=== PATIENT | female | born 1945 | race Asian ===

== ENCOUNTER 2021-01-29 20:59 | Inpatient (IN) | payer OTHER ==
[~2021-01-29] VITALS: Ht 152.4 cm; Wt 63.3 kg
[2021-01-29] MEDS ORDERED: ACETAMINOPHEN 500 MG TAB PO ONE (22:30)
[2021-01-29 22:31] LABS: Basophils # (auto) 0 10 ^3/uL (0-0.2); Basophils % (auto) 0.2 % (0.0-2.0); Eosinophils # (auto) 0 10 ^3/uL (0-0.8); Hematocrit 37.2 % (36.0-46.0); Hemoglobin 12.4 g/dL (12.2-16.2); Lymphocytes # (auto) 1.1 10 ^3/uL (0.4-5.4); Mean Corpuscular Hemoglobin 29.8 pg (28.0-32.0); Mean Corpuscular Hgb Conc. 33.3 g/dL (32.0-36.0); Mean Corpuscular Volume 89.4 fL (80.0-100.0); Monocytes % (auto) 11.8 % (0.0-12.0); Neutrophils # (auto) 6.4 10 ^3/uL (1.6-8.6); Nucleated Red Blood Cells % 0.1 %; Red Blood Cells 4.16 10^6/uL (4.0-5.20); Red Cell Distribution Width 13.4 % (11.8-14.3); White Blood Cell 8.6 10^3/uL (4.4-10.8)
[2021-01-29 22:49] LABS: Alanine Aminotransferase 39 U/L (13-56); Anion Gap 12 (5-15); Blood Urea Nitrogen 23 mg/dL (7-18); Calcium 9.5 mg/dL (8.5-10.1); Carbon Dioxide 20 mmol/L (21-32); Chloride 105 mmol/L (98-107); Glucose 161 mg/dL (74-106); Lipase 288 U/L (73-393); Magnesium 2.6 mg/dL (1.6-2.6); Potassium 3.9 mmol/L (3.5-5.1); Sodium 137 mmol/L (136-145)
[2021-01-29 22:54] LABS: Alkaline Phosphatase 46 U/L (45-117); Aspartate Aminotransferase 68 U/L (15-37); BUN/Creatinine Ratio 28.8; Bilirubin, Total 0.6 mg/dL (0.2-1.0); GFR African American 90 mL/min; GFR Non-African American 74 mL/min; Total Protein 9.2 g/dL (6.4-8.2)
[2021-01-29] MEDS ORDERED: PIPERACILLIN-TAZOB 3.375GM 100 ML IV ONE (23:15)
[2021-01-29] MEDS ORDERED: DexAMETHasone SOD PHOS 10MG/1ML VIAL INJ IV ONE (23:15)
[2021-01-30 06:54] LABS: Urine Bacteria FEW /hpf (None Seen); Urine Blood Negative /uL (Negative); Urine Hyaline Cast FEW /lpf (0 - 2); Urine Specific Gravity 1.025 (1.001-1.035); Urine WBC 24 /hpf (0 - 5)
[2021-01-30] MEDS ORDERED: ONDANSETRON HCL 4 MG/2 ML VIAL IV PRN (07:15)
[2021-01-30] MEDS ORDERED: HYDROcodone-ACET 5/325MG TAB PO PRN (07:15)
[2021-01-30] MEDS ORDERED: NITROGLYCERIN 0.4 MG SL TAB SL PRN (07:15)
[2021-01-30] MEDS ORDERED: MORPHINE SULFATE INJECTION 2 MG/ML SYRG IV PRN (07:15)
[2021-01-30] MEDS ORDERED: SODIUM CHLORIDE 0.9% 1,000 ML IV SCH (07:15)
[2021-01-30] MEDS: cefTRIAXone 1GM/50ML D5W 50 ML IV SCH (10:52)
[2021-01-30] MEDS: CHOLECALCIFEROL (VITD3) 2,000 UNIT CAP/TAB PO SCH (10:52)
[2021-01-30] MEDS: AZITHROMYCIN 500MG/ 250ML 250 ML IV SCH (10:52)
[2021-01-30] MEDS: ENOXAPARIN SOD 40 MG/0.4 ML SYRINGE SC SCH (10:53)
[2021-01-30] MEDS: MULTIPLE VITAMIN TAB PO SCH (10:53)
[2021-01-30] MEDS: ASCORBIC ACID 1,000 MG TAB PO SCH (10:53)
[2021-01-30] MEDS: ZINC SULFATE 220mg CAP or TAB PO SCH (10:53)
[2021-01-30] MEDS: FAMOTIDINE (10MG/ML) 2ML VL IV SCH (10:54)
[2021-01-30] MEDS: DexAMETHasone SOD PHOS 10MG/1ML VIAL INJ IV SCH (10:54)
[2021-01-30] MEDS ORDERED: REMDESIVIR PER PHARMACY 0 ML IV SCH (12:15)
[2021-01-30] MEDS ORDERED: DEXTROSE (50%) 50ML SYRG IV PRN (13:00)
[2021-01-30] MEDS ORDERED: IOHEXOL 350 MG/ML 100ML IJ ONE (13:21)
[2021-01-30] MEDS ORDERED: REMDESIVIR 200 MG in NS 210ml LOADING DOSE ADULT IV ONE (15:00)
[2021-01-30] MEDS: BUDESONIDE (INHALATION) 180 MCG IH IN SCH ×2 (15:27→21:59)
[2021-01-30] MEDS: ACCU-CHEK COMFORT CURVE STRIP VI SCH ×2 (16:41→21:21)
[2021-01-30] MEDS: InsuLIN REG 1unit/0.01ml Soln (100units/ml) SC SCH ×2 (17:23→21:21)
[2021-01-30] MEDS: Ensure HIGH Protein Chocolate 8oz Bottle PO SCH (18:15)
[2021-01-30 20:01] VITALS: BP 144/76
[2021-01-30] MEDS: ACETAMINOPHEN 500 MG TAB PO PRN (21:38)
[2021-01-30] MEDS: ALBUTEROL SULF HFA 90MCG INH 200DOSE IN PRN (21:59)
[2021-01-31] MEDS: ACETAMINOPHEN 500 MG TAB PO PRN (04:47)
[2021-01-31] MEDS: InsuLIN REG 1unit/0.01ml Soln (100units/ml) SC SCH ×4 (06:40→22:20)
[2021-01-31] MEDS: ACCU-CHEK COMFORT CURVE STRIP VI SCH ×4 (06:41→22:18)
[2021-01-31 06:58] LABS: Basophils # (auto) 0 10 ^3/uL (0-0.2); Basophils % (auto) 0.1 % (0.0-2.0); Eosinophils # (auto) 0 10 ^3/uL (0-0.8); Hematocrit 35.1 % (36.0-46.0); Hemoglobin 11.7 g/dL (12.2-16.2); Lymphocytes # (auto) 1.5 10 ^3/uL (0.4-5.4); Lymphocytes % (auto) 13.1 % (10.0-50.0); Mean Corpuscular Hemoglobin 30.3 pg (28.0-32.0); Mean Corpuscular Hgb Conc. 33.3 g/dL (32.0-36.0); Monocytes # (auto) 1.4 10 ^3/uL (0-1.3); Monocytes % (auto) 12.8 % (0.0-12.0); Neutrophils # (auto) 8.3 10 ^3/uL (1.6-8.6); Red Blood Cells 3.85 10^6/uL (4.0-5.20); Red Cell Distribution Width 13.3 % (11.8-14.3); White Blood Cell 11.2 10^3/uL (4.4-10.8)
[2021-01-31 07:13] LABS: Albumin 2.1 g/dL (3.4-5.0); BUN/Creatinine Ratio 33.8; Calcium 8.4 mg/dL (8.5-10.1); Potassium 3.6 mmol/L (3.5-5.1)
[2021-01-31 07:28] LABS: Bilirubin, Total 0.3 mg/dL (0.2-1.0); Total Protein 7.8 g/dL (6.4-8.2)
[2021-01-31] MEDS: Ensure HIGH Protein Chocolate 8oz Bottle PO SCH ×3 (08:00→18:55)
[2021-01-31] MEDS: cefTRIAXone 1GM/50ML D5W 50 ML IV SCH (09:30)
[2021-01-31] MEDS: BUDESONIDE (INHALATION) 180 MCG IH IN SCH ×2 (09:48→18:58)
[2021-01-31] MEDS: ALBUTEROL SULF HFA 90MCG INH 200DOSE IN PRN ×2 (09:48→20:13)
[2021-01-31] MEDS: ASCORBIC ACID 1,000 MG TAB PO SCH (10:00)
[2021-01-31] MEDS: AZITHROMYCIN 500MG/ 250ML 250 ML IV SCH ×2 (10:00→13:45)
[2021-01-31] MEDS: ZINC SULFATE 220mg CAP or TAB PO SCH (10:00)
[2021-01-31] MEDS: DexAMETHasone SOD PHOS 10MG/1ML VIAL INJ IV SCH (12:20)
[2021-01-31] MEDS: MULTIPLE VITAMIN TAB PO SCH (12:21)
[2021-01-31] MEDS: FAMOTIDINE (10MG/ML) 2ML VL IV SCH (12:21)
[2021-01-31] MEDS: ENOXAPARIN SOD 40 MG/0.4 ML SYRINGE SC SCH (12:22)
[2021-01-31] MEDS: CHOLECALCIFEROL (VITD3) 2,000 UNIT CAP/TAB PO SCH (12:22)
[2021-01-31] MEDS: REMDESIVIR 100mg 100 MG in SODIUM CHL 0.9% 230 ML IV SCH (15:45)
[2021-01-31] MEDS ORDERED: TOCILIZUMAB 400 MG in SODIUM CHL 0.9% 80 ML IV ONE (17:00)
[2021-02-01 02:18] VITALS: BP 148/82
[2021-02-01 05:00] VITALS: BP 154/85
[2021-02-01] MEDS: ACCU-CHEK COMFORT CURVE STRIP VI SCH ×4 (05:09→21:40)
[2021-02-01] MEDS: InsuLIN REG 1unit/0.01ml Soln (100units/ml) SC SCH ×4 (05:12→21:39)
[2021-02-01 06:13] LABS: Basophils # (auto) 0 10 ^3/uL (0-0.2); Basophils % (auto) 0.2 % (0.0-2.0); Eosinophils # (auto) 0 10 ^3/uL (0-0.8); Hematocrit 37.3 % (36.0-46.0); Hemoglobin 12.8 g/dL (12.2-16.2); Lymphocytes # (auto) 1.2 10 ^3/uL (0.4-5.4); Lymphocytes % (auto) 10.8 % (10.0-50.0); Mean Corpuscular Hemoglobin 30.7 pg (28.0-32.0); Mean Corpuscular Hgb Conc. 34.3 g/dL (32.0-36.0); Mean Corpuscular Volume 89.5 fL (80.0-100.0); Monocytes # (auto) 1.4 10 ^3/uL (0-1.3); Monocytes % (auto) 12.3 % (0.0-12.0); Neutrophils # (auto) 8.5 10 ^3/uL (1.6-8.6); Neutrophils % (auto) 76.7 % (37.0-80.0); Nucleated Red Blood Cells % 0.1 %; Red Blood Cells 4.16 10^6/uL (4.0-5.20); Red Cell Distribution Width 13.4 % (11.8-14.3); White Blood Cell 11.1 10^3/uL (4.4-10.8)
[2021-02-01 06:47] LABS: Potassium 3.2 mmol/L (3.5-5.1)
[2021-02-01 06:52] LABS: Albumin 2.4 g/dL (3.4-5.0); Calcium 8.3 mg/dL (8.5-10.1)
[2021-02-01 06:54] LABS: Bilirubin, Total 0.4 mg/dL (0.2-1.0); Total Protein 8.1 g/dL (6.4-8.2)
[2021-02-01] MEDS: BUDESONIDE (INHALATION) 180 MCG IH IN SCH ×2 (07:29→19:12)
[2021-02-01] MEDS: ALBUTEROL SULF HFA 90MCG INH 200DOSE IN PRN ×2 (07:29→19:11)
[2021-02-01] MEDS: Ensure HIGH Protein Chocolate 8oz Bottle PO SCH ×3 (08:00→17:54)
[2021-02-01 09:00] VITALS: BP 156/85
[2021-02-01] MEDS: DexAMETHasone SOD PHOS 10MG/1ML VIAL INJ IV SCH (09:03)
[2021-02-01] MEDS: FAMOTIDINE (10MG/ML) 2ML VL IV SCH (09:03)
[2021-02-01] MEDS: cefTRIAXone 1GM/50ML D5W 50 ML IV SCH (09:03)
[2021-02-01] MEDS: MULTIPLE VITAMIN TAB PO SCH (09:04)
[2021-02-01] MEDS: ZINC SULFATE 220mg CAP or TAB PO SCH (09:04)
[2021-02-01] MEDS: ASCORBIC ACID 1,000 MG TAB PO SCH (09:04)
[2021-02-01] MEDS: CHOLECALCIFEROL (VITD3) 2,000 UNIT CAP/TAB PO SCH (09:04)
[2021-02-01] MEDS: ENOXAPARIN SOD 40 MG/0.4 ML SYRINGE SC SCH ×2 (09:05→21:40)
[2021-02-01] MEDS ORDERED: TOCILIZUMAB 400 MG in SODIUM CHL 0.9% 80 ML IV ONE (10:00)
[2021-02-01] MEDS ORDERED: FAMO20TA10 PO (12:39)
[2021-02-01] MEDS ORDERED: PANT40TA2 PO (12:39)
[2021-02-01] MEDS ORDERED: OXY5T PO (12:39)
[2021-02-01] MEDS ORDERED: PRE5T PO (12:39)
[2021-02-01] MEDS ORDERED: ACET-1304 PO (12:39)
[2021-02-01] MEDS ORDERED: PIO30T PO (12:39)
[2021-02-01] MEDS ORDERED: METH2.5T PO ×2 (12:39→13:04)
[2021-02-01] MEDS ORDERED: LOSA100T22 PO (12:39)
[2021-02-01] MEDS ORDERED: ACETAMINOPHEN 500 MG TAB PO PRN (12:45)
[2021-02-01] MEDS ORDERED: oxyCODONE HCL 5MG TAB PO PRN (12:45)
[2021-02-01 13:00] VITALS: BP 155/88
[2021-02-01] MEDS: REMDESIVIR 100mg 100 MG in SODIUM CHL 0.9% 230 ML IV SCH (14:35)
[2021-02-01] MEDS ORDERED: VALS40TA2 PO (15:36)
[2021-02-01] MEDS ORDERED: METHOTREXATE 2.5 MG TAB PO SCH ×2 (15:45→18:00)
[2021-02-01 17:00] VITALS: BP 172/94
[2021-02-01] MEDS ORDERED: VALSARTAN 80 MG TAB PO ONE (17:00)
[2021-02-01] MEDS: METHOTREXATE 2.5 MG TAB PO SCH (17:12)
[2021-02-01 22:00] VITALS: BP 160/93
[2021-02-01] MEDS ORDERED: FAMOTIDINE 20 MG TAB PO SCH (22:00)
[2021-02-02 05:00] VITALS: BP 155/85
[2021-02-02 05:17] LABS: Basophils # (auto) 0.1 10 ^3/uL (0-0.2); Basophils % (auto) 0.8 % (0.0-2.0); Eosinophils # (auto) 0 10 ^3/uL (0-0.8); Eosinophils % (auto) 0.1 % (0.0-7.0); Hematocrit 36.3 % (36.0-46.0); Hemoglobin 12.5 g/dL (12.2-16.2); Lymphocytes # (auto) 1.4 10 ^3/uL (0.4-5.4); Lymphocytes % (auto) 13.4 % (10.0-50.0); Mean Corpuscular Hemoglobin 30.7 pg (28.0-32.0); Mean Corpuscular Hgb Conc. 34.3 g/dL (32.0-36.0); Mean Corpuscular Volume 89.4 fL (80.0-100.0); Monocytes # (auto) 0.9 10 ^3/uL (0-1.3); Monocytes % (auto) 8.8 % (0.0-12.0); Neutrophils # (auto) 7.9 10 ^3/uL (1.6-8.6); Neutrophils % (auto) 76.9 % (37.0-80.0); Red Blood Cells 4.06 10^6/uL (4.0-5.20); Red Cell Distribution Width 13.5 % (11.8-14.3); White Blood Cell 10.2 10^3/uL (4.4-10.8)
[2021-02-02 05:19] LABS: Calcium 8.3 mg/dL (8.5-10.1); Potassium 3.4 mmol/L (3.5-5.1)
[2021-02-02] MEDS: ACCU-CHEK COMFORT CURVE STRIP VI SCH ×4 (05:39→21:29)
[2021-02-02] MEDS: InsuLIN REG 1unit/0.01ml Soln (100units/ml) SC SCH ×4 (05:41→21:29)
[2021-02-02 09:19] VITALS: BP 153/79
[2021-02-02] MEDS ORDERED: LOSARTAN POTASSIUM 50 MG TAB PO SCH (10:00)
[2021-02-02] MEDS: Ensure HIGH Protein Chocolate 8oz Bottle PO SCH ×3 (11:16→18:00)
[2021-02-02] MEDS: MULTIPLE VITAMIN TAB PO SCH (11:17)
[2021-02-02] MEDS: DexAMETHasone SOD PHOS 10MG/1ML VIAL INJ IV SCH (11:17)
[2021-02-02] MEDS: BUDESONIDE (INHALATION) 180 MCG IH IN SCH ×2 (11:17→19:08)
[2021-02-02] MEDS: ALBUTEROL SULF HFA 90MCG INH 200DOSE IN PRN ×2 (11:17→19:08)
[2021-02-02] MEDS: VALSARTAN 80 MG TAB PO SCH (11:17)
[2021-02-02] MEDS: ZINC SULFATE 220mg CAP or TAB PO SCH (11:17)
[2021-02-02] MEDS: cefTRIAXone 1GM/50ML D5W 50 ML IV SCH (11:17)
[2021-02-02] MEDS: ENOXAPARIN SOD 40 MG/0.4 ML SYRINGE SC SCH ×2 (11:18→21:29)
[2021-02-02] MEDS: PANTOPRAZOLE 40 MG TAB PO SCH (11:18)
[2021-02-02] MEDS: ASCORBIC ACID 1,000 MG TAB PO SCH (11:18)
[2021-02-02] MEDS: CHOLECALCIFEROL (VITD3) 2,000 UNIT CAP/TAB PO SCH (11:18)
[2021-02-02] MEDS: AZITHROMYCIN 500MG/ 250ML 250 ML IV SCH (11:59)
[2021-02-02 12:44] VITALS: BP 139/89
[2021-02-02] MEDS: REMDESIVIR 100mg 100 MG in SODIUM CHL 0.9% 230 ML IV SCH (16:31)
[2021-02-02 17:18] VITALS: BP 142/82
[2021-02-02 22:00] VITALS: BP 163/97
[2021-02-02 23:39] VITALS: BP 138/99
[2021-02-03 05:00] VITALS: BP 156/76
[2021-02-03 05:48] LABS: Albumin 2.5 g/dL (3.4-5.0); Calcium 8.4 mg/dL (8.5-10.1); Potassium 3.3 mmol/L (3.5-5.1)
[2021-02-03 05:55] LABS: Basophils # (auto) 0 10 ^3/uL (0-0.2); Basophils % (auto) 0.5 % (0.0-2.0); Eosinophils # (auto) 0 10 ^3/uL (0-0.8); Eosinophils % (auto) 0.1 % (0.0-7.0); Hematocrit 38.3 % (36.0-46.0); Hemoglobin 13.3 g/dL (12.2-16.2); Lymphocytes # (auto) 1.4 10 ^3/uL (0.4-5.4); Lymphocytes % (auto) 13.4 % (10.0-50.0); Mean Corpuscular Hgb Conc. 34.7 g/dL (32.0-36.0); Mean Corpuscular Volume 89.5 fL (80.0-100.0); Monocytes # (auto) 0.6 10 ^3/uL (0-1.3); Monocytes % (auto) 5.5 % (0.0-12.0); Neutrophils # (auto) 8.2 10 ^3/uL (1.6-8.6); Neutrophils % (auto) 80.5 % (37.0-80.0); Nucleated Red Blood Cells % 0.1 %; Red Blood Cells 4.28 10^6/uL (4.0-5.20); Red Cell Distribution Width 13.5 % (11.8-14.3); White Blood Cell 10.1 10^3/uL (4.4-10.8)
[2021-02-03 05:57] LABS: BUN/Creatinine Ratio 35.9; Bilirubin, Total 0.5 mg/dL (0.2-1.0); CRP High Sensitivity 1.98 mg/dL (< 0.3); Total Protein 7.8 g/dL (6.4-8.2)
[2021-02-03] MEDS: ACCU-CHEK COMFORT CURVE STRIP VI SCH ×4 (06:56→22:01)
[2021-02-03] MEDS: ALBUTEROL SULF HFA 90MCG INH 200DOSE IN PRN ×2 (07:01→21:19)
[2021-02-03] MEDS: BUDESONIDE (INHALATION) 180 MCG IH IN SCH ×2 (07:01→21:19)
[2021-02-03] MEDS: InsuLIN REG 1unit/0.01ml Soln (100units/ml) SC SCH ×4 (07:04→22:02)
[2021-02-03 08:30] VITALS: BP 180/92
[2021-02-03] MEDS: ZINC SULFATE 220mg CAP or TAB PO SCH (09:17)
[2021-02-03] MEDS: DexAMETHasone SOD PHOS 10MG/1ML VIAL INJ IV SCH (09:17)
[2021-02-03] MEDS: cefTRIAXone 1GM/50ML D5W 50 ML IV SCH (09:17)
[2021-02-03] MEDS: Ensure HIGH Protein Chocolate 8oz Bottle PO SCH ×3 (09:17→17:54)
[2021-02-03] MEDS: CHOLECALCIFEROL (VITD3) 2,000 UNIT CAP/TAB PO SCH (09:18)
[2021-02-03] MEDS: MULTIPLE VITAMIN TAB PO SCH (09:18)
[2021-02-03] MEDS: ASCORBIC ACID 1,000 MG TAB PO SCH (09:18)
[2021-02-03] MEDS: VALSARTAN 80 MG TAB PO SCH (09:18)
[2021-02-03] MEDS: PANTOPRAZOLE 40 MG TAB PO SCH (09:18)
[2021-02-03] MEDS: hydrALAZINE HCL 20 MG/ML VL IV PRN (09:19)
[2021-02-03] MEDS: ENOXAPARIN SOD 40 MG/0.4 ML SYRINGE SC SCH ×2 (09:19→22:01)
[2021-02-03] MEDS: AZITHROMYCIN 500MG/ 250ML 250 ML IV SCH (09:52)
[2021-02-03 12:28] VITALS: BP 155/94
[2021-02-03] MEDS ORDERED: POTASSIUM CHL 20 Meq TABLET PO ONE (12:45)
[2021-02-03] MEDS: REMDESIVIR 100mg 100 MG in SODIUM CHL 0.9% 230 ML IV SCH (15:42)
[2021-02-03 17:16] VITALS: BP 135/68
[2021-02-03 22:00] VITALS: BP 150/94
[2021-02-04 05:00] VITALS: BP 170/87
[2021-02-04] MEDS: ALBUTEROL SULF HFA 90MCG INH 200DOSE IN PRN ×2 (06:04→22:12)
[2021-02-04] MEDS: BUDESONIDE (INHALATION) 180 MCG IH IN SCH ×2 (06:04→22:12)
[2021-02-04] MEDS: ACCU-CHEK COMFORT CURVE STRIP VI SCH ×4 (06:36→23:21)
[2021-02-04] MEDS: InsuLIN REG 1unit/0.01ml Soln (100units/ml) SC SCH ×4 (06:37→23:23)
[2021-02-04 07:24] LABS: Basophils # (auto) 0 10 ^3/uL (0-0.2); Basophils % (auto) 0.3 % (0.0-2.0); Eosinophils # (auto) 0.1 10 ^3/uL (0-0.8); Eosinophils % (auto) 0.5 % (0.0-7.0); Hematocrit 42.3 % (36.0-46.0); Hemoglobin 14.1 g/dL (12.2-16.2); Lymphocytes # (auto) 2.3 10 ^3/uL (0.4-5.4); Lymphocytes % (auto) 18.9 % (10.0-50.0); Mean Corpuscular Hemoglobin 30.3 pg (28.0-32.0); Mean Corpuscular Hgb Conc. 33.3 g/dL (32.0-36.0); Monocytes # (auto) 0.7 10 ^3/uL (0-1.3); Monocytes % (auto) 5.6 % (0.0-12.0); Neutrophils # (auto) 9.2 10 ^3/uL (1.6-8.6); Neutrophils % (auto) 74.7 % (37.0-80.0); Nucleated Red Blood Cells % 0.1 %; Red Blood Cells 4.65 10^6/uL (4.0-5.20); Red Cell Distribution Width 13.6 % (11.8-14.3); White Blood Cell 12.3 10^3/uL (4.4-10.8)
[2021-02-04 07:37] LABS: BUN/Creatinine Ratio 37.8; Calcium 8.6 mg/dL (8.5-10.1); Potassium 3.6 mmol/L (3.5-5.1)
[2021-02-04] MEDS: cefTRIAXone 1GM/50ML D5W 50 ML IV SCH (09:05)
[2021-02-04] MEDS: Ensure HIGH Protein Chocolate 8oz Bottle PO SCH ×3 (09:05→17:46)
[2021-02-04 09:12] VITALS: BP 161/80
[2021-02-04] MEDS: DexAMETHasone SOD PHOS 10MG/1ML VIAL INJ IV SCH (10:31)
[2021-02-04] MEDS: ZINC SULFATE 220mg CAP or TAB PO SCH (10:31)
[2021-02-04] MEDS: MULTIPLE VITAMIN TAB PO SCH (10:31)
[2021-02-04] MEDS: VALSARTAN 80 MG TAB PO SCH (10:31)
[2021-02-04] MEDS: ENOXAPARIN SOD 40 MG/0.4 ML SYRINGE SC SCH ×2 (10:32→23:21)
[2021-02-04] MEDS: CHOLECALCIFEROL (VITD3) 2,000 UNIT CAP/TAB PO SCH (10:32)
[2021-02-04] MEDS: PANTOPRAZOLE 40 MG TAB PO SCH (10:32)
[2021-02-04] MEDS: ASCORBIC ACID 1,000 MG TAB PO SCH (10:32)
[2021-02-04] MEDS: hydrALAZINE HCL 20 MG/ML VL IV PRN (11:08)
[2021-02-04 13:00] VITALS: BP 130/76
[2021-02-04 17:00] VITALS: BP 130/81
[2021-02-04 22:00] VITALS: BP 121/79
[2021-02-05 05:00] VITALS: BP 142/86
[2021-02-05] MEDS: ALBUTEROL SULF HFA 90MCG INH 200DOSE IN PRN ×2 (06:13→22:05)
[2021-02-05] MEDS: BUDESONIDE (INHALATION) 180 MCG IH IN SCH ×2 (06:14→22:04)
[2021-02-05] MEDS: InsuLIN REG 1unit/0.01ml Soln (100units/ml) SC SCH ×4 (06:42→21:59)
[2021-02-05] MEDS: ACCU-CHEK COMFORT CURVE STRIP VI SCH ×4 (06:42→22:06)
[2021-02-05 08:00] VITALS: BP 140/70
[2021-02-05] MEDS: Ensure HIGH Protein Chocolate 8oz Bottle PO SCH ×3 (08:00→18:00)
[2021-02-05 09:00] VITALS: BP 140/70
[2021-02-05 09:42] LABS: Basophils # (auto) 0.1 10 ^3/uL (0-0.2); Basophils % (auto) 0.5 % (0.0-2.0); Eosinophils # (auto) 0.1 10 ^3/uL (0-0.8); Eosinophils % (auto) 0.6 % (0.0-7.0); Hematocrit 43.4 % (36.0-46.0); Hemoglobin 14.3 g/dL (12.2-16.2); Lymphocytes # (auto) 1.8 10 ^3/uL (0.4-5.4); Lymphocytes % (auto) 13.2 % (10.0-50.0); Mean Corpuscular Hemoglobin 29.7 pg (28.0-32.0); Mean Corpuscular Volume 90.2 fL (80.0-100.0); Monocytes # (auto) 0.8 10 ^3/uL (0-1.3); Monocytes % (auto) 5.4 % (0.0-12.0); Neutrophils # (auto) 11.2 10 ^3/uL (1.6-8.6); Neutrophils % (auto) 80.3 % (37.0-80.0); Nucleated Red Blood Cells % 0.1 %; Red Blood Cells 4.81 10^6/uL (4.0-5.20); Red Cell Distribution Width 13.7 % (11.8-14.3); White Blood Cell 13.9 10^3/uL (4.4-10.8)
[2021-02-05] MEDS: MULTIPLE VITAMIN TAB PO SCH (09:53)
[2021-02-05] MEDS: ENOXAPARIN SOD 40 MG/0.4 ML SYRINGE SC SCH ×2 (09:53→22:05)
[2021-02-05] MEDS: ASCORBIC ACID 1,000 MG TAB PO SCH (09:53)
[2021-02-05] MEDS: ZINC SULFATE 220mg CAP or TAB PO SCH (09:53)
[2021-02-05] MEDS: PANTOPRAZOLE 40 MG TAB PO SCH (09:53)
[2021-02-05] MEDS: cefTRIAXone 1GM/50ML D5W 50 ML IV SCH (09:53)
[2021-02-05] MEDS: DexAMETHasone SOD PHOS 10MG/1ML VIAL INJ IV SCH (09:54)
[2021-02-05] MEDS: VALSARTAN 80 MG TAB PO SCH (09:54)
[2021-02-05 09:58] LABS: BUN/Creatinine Ratio 42.1; Potassium 3.7 mmol/L (3.5-5.1)
[2021-02-05 13:00] VITALS: BP 153/95
[2021-02-05] MEDS ORDERED: LABETALOL HCL 5 MG/ML 4ML SYRINGE IV PRN (16:15)
[2021-02-05 17:00] VITALS: BP 138/109
[2021-02-05] MEDS: CHOLECALCIFEROL (VITD3) 2,000 UNIT CAP/TAB PO SCH (17:04)
[2021-02-05] MEDS: FREE WATER PO SCH ×2 (18:00→22:00)
[2021-02-05 21:46] VITALS: BP 134/76
[2021-02-06] MEDS: FREE WATER PO SCH ×6 (02:00→21:17)
[2021-02-06 05:33] VITALS: BP 163/95
[2021-02-06] MEDS: InsuLIN REG 1unit/0.01ml Soln (100units/ml) SC SCH ×4 (06:40→21:24)
[2021-02-06] MEDS: ACCU-CHEK COMFORT CURVE STRIP VI SCH ×4 (06:40→21:17)
[2021-02-06] MEDS: BUDESONIDE (INHALATION) 180 MCG IH IN SCH ×2 (06:41→22:03)
[2021-02-06] MEDS: ALBUTEROL SULF HFA 90MCG INH 200DOSE IN PRN ×2 (06:41→22:03)
[2021-02-06] MEDS: Ensure HIGH Protein Chocolate 8oz Bottle PO SCH ×3 (09:08→17:56)
[2021-02-06] MEDS: cefTRIAXone 1GM/50ML D5W 50 ML IV SCH (09:11)
[2021-02-06] MEDS: ASCORBIC ACID 1,000 MG TAB PO SCH (10:02)
[2021-02-06] MEDS: CHOLECALCIFEROL (VITD3) 2,000 UNIT CAP/TAB PO SCH (10:02)
[2021-02-06] MEDS: ZINC SULFATE 220mg CAP or TAB PO SCH (10:02)
[2021-02-06] MEDS: MULTIPLE VITAMIN TAB PO SCH (10:02)
[2021-02-06] MEDS: DexAMETHasone SOD PHOS 10MG/1ML VIAL INJ IV SCH (10:02)
[2021-02-06] MEDS: PANTOPRAZOLE 40 MG TAB PO SCH (10:03)
[2021-02-06] MEDS: ENOXAPARIN SOD 40 MG/0.4 ML SYRINGE SC SCH ×2 (10:03→21:17)
[2021-02-06] MEDS: VALSARTAN 80 MG TAB PO SCH (10:03)
[2021-02-06 11:08] LABS: BUN/Creatinine Ratio 45.8
[2021-02-06] MEDS ORDERED: D5W 5% 1,000 ML IV ONE (12:00)
[2021-02-06 21:59] VITALS: BP 132/71
[2021-02-07] MEDS: FREE WATER PO SCH ×6 (02:03→21:30)
[2021-02-07 05:02] VITALS: BP 136/64
[2021-02-07 05:50] LABS: Basophils # (auto) 0.1 10 ^3/uL (0-0.2); Basophils % (auto) 0.4 % (0.0-2.0); Eosinophils # (auto) 0 10 ^3/uL (0-0.8); Eosinophils % (auto) 0.1 % (0.0-7.0); Hematocrit 43.9 % (36.0-46.0); Hemoglobin 14.3 g/dL (12.2-16.2); Lymphocytes # (auto) 1.2 10 ^3/uL (0.4-5.4); Lymphocytes % (auto) 6.6 % (10.0-50.0); Mean Corpuscular Hemoglobin 29.9 pg (28.0-32.0); Mean Corpuscular Hgb Conc. 32.6 g/dL (32.0-36.0); Mean Corpuscular Volume 91.6 fL (80.0-100.0); Monocytes # (auto) 1.2 10 ^3/uL (0-1.3); Monocytes % (auto) 6.9 % (0.0-12.0); Neutrophils # (auto) 15.2 10 ^3/uL (1.6-8.6); Nucleated Red Blood Cells % 0.1 %; Red Blood Cells 4.79 10^6/uL (4.0-5.20); Red Cell Distribution Width 13.9 % (11.8-14.3); White Blood Cell 17.7 10^3/uL (4.4-10.8)
[2021-02-07] MEDS: BUDESONIDE (INHALATION) 180 MCG IH IN SCH ×2 (06:09→20:05)
[2021-02-07] MEDS: ALBUTEROL SULF HFA 90MCG INH 200DOSE IN PRN ×2 (06:09→20:05)
[2021-02-07 06:20] LABS: Potassium 3.9 mmol/L (3.5-5.1)
[2021-02-07 06:23] LABS: BUN/Creatinine Ratio 42.6
[2021-02-07] MEDS: ACCU-CHEK COMFORT CURVE STRIP VI SCH ×4 (06:28→21:36)
[2021-02-07] MEDS: InsuLIN REG 1unit/0.01ml Soln (100units/ml) SC SCH ×4 (06:32→21:33)
[2021-02-07 09:00] VITALS: BP 127/67
[2021-02-07] MEDS ORDERED: FUROSEMIDE 40 MG/4 ML VIAL IV ONE (09:30)
[2021-02-07] MEDS: ENOXAPARIN SOD 40 MG/0.4 ML SYRINGE SC SCH ×3 (10:00→21:36)
[2021-02-07] MEDS: Ensure HIGH Protein Chocolate 8oz Bottle PO SCH ×3 (11:01→18:44)
[2021-02-07] MEDS: DexAMETHasone SOD PHOS 10MG/1ML VIAL INJ IV SCH (11:02)
[2021-02-07] MEDS: cefTRIAXone 1GM/50ML D5W 50 ML IV SCH (11:02)
[2021-02-07] MEDS: ZINC SULFATE 220mg CAP or TAB PO SCH (11:03)
[2021-02-07] MEDS: PANTOPRAZOLE 40 MG TAB PO SCH (11:04)
[2021-02-07] MEDS: CHOLECALCIFEROL (VITD3) 2,000 UNIT CAP/TAB PO SCH (11:04)
[2021-02-07] MEDS: MULTIPLE VITAMIN TAB PO SCH (11:04)
[2021-02-07] MEDS: ASCORBIC ACID 1,000 MG TAB PO SCH (11:04)
[2021-02-07] MEDS: VALSARTAN 80 MG TAB PO SCH (11:34)
[2021-02-07 15:04] VITALS: BP 128/66
[2021-02-07 17:00] VITALS: BP 98/62
[2021-02-07 22:00] VITALS: BP 111/64
[2021-02-08] MEDS: FREE WATER PO SCH ×6 (02:33→22:01)
[2021-02-08 05:15] VITALS: BP 132/70
[2021-02-08] MEDS: BUDESONIDE (INHALATION) 180 MCG IH IN SCH ×2 (06:09→21:03)
[2021-02-08] MEDS: ALBUTEROL SULF HFA 90MCG INH 200DOSE IN PRN ×2 (06:09→21:03)
[2021-02-08 06:11] LABS: Basophils # (auto) 0.1 10 ^3/uL (0-0.2); Basophils % (auto) 0.5 % (0.0-2.0); Eosinophils # (auto) 0 10 ^3/uL (0-0.8); Eosinophils % (auto) 0.2 % (0.0-7.0); Hematocrit 46.3 % (36.0-46.0); Hemoglobin 15.2 g/dL (12.2-16.2); Lymphocytes # (auto) 1.4 10 ^3/uL (0.4-5.4); Mean Corpuscular Hemoglobin 30.1 pg (28.0-32.0); Mean Corpuscular Hgb Conc. 32.8 g/dL (32.0-36.0); Mean Corpuscular Volume 91.9 fL (80.0-100.0); Monocytes # (auto) 1.2 10 ^3/uL (0-1.3); Neutrophils # (auto) 17.7 10 ^3/uL (1.6-8.6); Neutrophils % (auto) 86.3 % (37.0-80.0); Nucleated Red Blood Cells % 0.1 %; Red Blood Cells 5.04 10^6/uL (4.0-5.20); Red Cell Distribution Width 14.2 % (11.8-14.3); White Blood Cell 20.5 10^3/uL (4.4-10.8)
[2021-02-08] MEDS: InsuLIN REG 1unit/0.01ml Soln (100units/ml) SC SCH ×4 (06:18→21:59)
[2021-02-08] MEDS: ACCU-CHEK COMFORT CURVE STRIP VI SCH ×4 (06:18→22:01)
[2021-02-08 06:29] LABS: Potassium 3.9 mmol/L (3.5-5.1)
[2021-02-08 06:34] LABS: BUN/Creatinine Ratio 37.2; CRP High Sensitivity 0.37 mg/dL (< 0.3); Calcium 9.1 mg/dL (8.5-10.1)
[2021-02-08] MEDS: Ensure HIGH Protein Chocolate 8oz Bottle PO SCH ×3 (08:21→18:51)
[2021-02-08 09:00] VITALS: BP 130/75
[2021-02-08] MEDS: VALSARTAN 80 MG TAB PO SCH (10:00)
[2021-02-08] MEDS: ASCORBIC ACID 1,000 MG TAB PO SCH (10:00)
[2021-02-08] MEDS: cefTRIAXone 1GM/50ML D5W 50 ML IV SCH (11:33)
[2021-02-08] MEDS: DexAMETHasone SOD PHOS 10MG/1ML VIAL INJ IV SCH (11:35)
[2021-02-08] MEDS: ZINC SULFATE 220mg CAP or TAB PO SCH (11:36)
[2021-02-08] MEDS: MULTIPLE VITAMIN TAB PO SCH (11:36)
[2021-02-08] MEDS: PANTOPRAZOLE 40 MG TAB PO SCH (11:37)
[2021-02-08] MEDS: ENOXAPARIN SOD 40 MG/0.4 ML SYRINGE SC SCH ×2 (11:37→22:01)
[2021-02-08] MEDS: CHOLECALCIFEROL (VITD3) 2,000 UNIT CAP/TAB PO SCH (11:37)
[2021-02-08 13:00] VITALS: BP 106/70
[2021-02-08] MEDS: METHOTREXATE 2.5 MG TAB PO SCH (15:36)
[2021-02-08 16:51] VITALS: BP 110/71
[2021-02-08 22:00] VITALS: BP 110/69
[2021-02-09] MEDS: FREE WATER PO SCH ×2 (03:06→06:31)
[2021-02-09 05:00] VITALS: BP 121/69
[2021-02-09 05:32] LABS: Basophils # (auto) 0 10 ^3/uL (0-0.2); Basophils % (auto) 0.2 % (0.0-2.0); Eosinophils # (auto) 0 10 ^3/uL (0-0.8); Eosinophils % (auto) 0.1 % (0.0-7.0); Hemoglobin 15.4 g/dL (12.2-16.2); Lymphocytes # (auto) 1.2 10 ^3/uL (0.4-5.4); Lymphocytes % (auto) 6.5 % (10.0-50.0); Mean Corpuscular Hemoglobin 29.8 pg (28.0-32.0); Mean Corpuscular Hgb Conc. 31.5 g/dL (32.0-36.0); Mean Corpuscular Volume 94.5 fL (80.0-100.0); Monocytes # (auto) 1.1 10 ^3/uL (0-1.3); Neutrophils # (auto) 15.5 10 ^3/uL (1.6-8.6); Neutrophils % (auto) 87.2 % (37.0-80.0); Nucleated Red Blood Cells % 0.1 %; Red Blood Cells 5.19 10^6/uL (4.0-5.20); Red Cell Distribution Width 14.4 % (11.8-14.3); White Blood Cell 17.8 10^3/uL (4.4-10.8)
[2021-02-09] MEDS: ALBUTEROL SULF HFA 90MCG INH 200DOSE IN PRN ×2 (05:56→21:12)
[2021-02-09] MEDS: BUDESONIDE (INHALATION) 180 MCG IH IN SCH ×2 (05:57→21:12)
[2021-02-09] MEDS: ACCU-CHEK COMFORT CURVE STRIP VI SCH ×4 (06:31→22:13)
[2021-02-09] MEDS: InsuLIN REG 1unit/0.01ml Soln (100units/ml) SC SCH ×4 (06:34→22:15)
[2021-02-09] MEDS: Ensure HIGH Protein Chocolate 8oz Bottle PO SCH ×3 (08:00→18:00)
[2021-02-09 09:00] VITALS: BP 124/76
[2021-02-09] MEDS: DexAMETHasone SOD PHOS 10MG/1ML VIAL INJ IV SCH (10:43)
[2021-02-09] MEDS: cefTRIAXone 1GM/50ML D5W 50 ML IV SCH (10:43)
[2021-02-09] MEDS: ZINC SULFATE 220mg CAP or TAB PO SCH (10:44)
[2021-02-09] MEDS: ASCORBIC ACID 1,000 MG TAB PO SCH (10:45)
[2021-02-09] MEDS: MULTIPLE VITAMIN TAB PO SCH (10:45)
[2021-02-09] MEDS: PANTOPRAZOLE 40 MG TAB PO SCH (10:46)
[2021-02-09] MEDS: CHOLECALCIFEROL (VITD3) 2,000 UNIT CAP/TAB PO SCH (10:46)
[2021-02-09] MEDS: ENOXAPARIN SOD 40 MG/0.4 ML SYRINGE SC SCH ×2 (10:48→22:14)
[2021-02-09] MEDS: VALSARTAN 80 MG TAB PO SCH (11:06)
[2021-02-09 12:46] LABS: Potassium 4.2 mmol/L (3.5-5.1)
[2021-02-09 12:54] LABS: BUN/Creatinine Ratio 59.1; Calcium 9.3 mg/dL (8.5-10.1)
[2021-02-09 13:00] VITALS: BP 117/75
[2021-02-09 17:00] VITALS: BP 105/69
[2021-02-09 22:00] VITALS: BP 99/68
[2021-02-10 05:00] VITALS: BP 126/76
[2021-02-10 06:29] LABS: Basophils # (auto) 0.1 10 ^3/uL (0-0.2); Basophils % (auto) 0.4 % (0.0-2.0); Eosinophils # (auto) 0 10 ^3/uL (0-0.8); Eosinophils % (auto) 0.1 % (0.0-7.0); Hematocrit 48.2 % (36.0-46.0); Hemoglobin 15.3 g/dL (12.2-16.2); Lymphocytes # (auto) 1.2 10 ^3/uL (0.4-5.4); Lymphocytes % (auto) 6.9 % (10.0-50.0); Mean Corpuscular Hemoglobin 29.7 pg (28.0-32.0); Mean Corpuscular Hgb Conc. 31.6 g/dL (32.0-36.0); Mean Corpuscular Volume 93.9 fL (80.0-100.0); Monocytes # (auto) 1.2 10 ^3/uL (0-1.3); Monocytes % (auto) 6.9 % (0.0-12.0); Neutrophils # (auto) 15.3 10 ^3/uL (1.6-8.6); Neutrophils % (auto) 85.7 % (37.0-80.0); Nucleated Red Blood Cells % 0.1 %; Red Blood Cells 5.14 10^6/uL (4.0-5.20); Red Cell Distribution Width 14.6 % (11.8-14.3); White Blood Cell 17.8 10^3/uL (4.4-10.8)
[2021-02-10] MEDS: ACCU-CHEK COMFORT CURVE STRIP VI SCH ×4 (06:36→21:55)
[2021-02-10] MEDS: InsuLIN REG 1unit/0.01ml Soln (100units/ml) SC SCH ×4 (06:38→21:56)
[2021-02-10 06:50] LABS: BUN/Creatinine Ratio 68.1; Calcium 9.5 mg/dL (8.5-10.1); Potassium 4.2 mmol/L (3.5-5.1)
[2021-02-10] MEDS: Ensure HIGH Protein Chocolate 8oz Bottle PO SCH ×3 (08:00→18:00)
[2021-02-10 09:00] VITALS: BP 118/70
[2021-02-10] MEDS: ALBUTEROL SULF HFA 90MCG INH 200DOSE IN PRN ×2 (09:34→20:03)
[2021-02-10] MEDS: BUDESONIDE (INHALATION) 180 MCG IH IN SCH ×2 (09:34→19:09)
[2021-02-10] MEDS: cefTRIAXone 1GM/50ML D5W 50 ML IV SCH (10:30)
[2021-02-10] MEDS: DexAMETHasone SOD PHOS 10MG/1ML VIAL INJ IV SCH (11:06)
[2021-02-10] MEDS: ZINC SULFATE 220mg CAP or TAB PO SCH (11:06)
[2021-02-10] MEDS: MULTIPLE VITAMIN TAB PO SCH (11:06)
[2021-02-10] MEDS: CHOLECALCIFEROL (VITD3) 2,000 UNIT CAP/TAB PO SCH (11:07)
[2021-02-10] MEDS: ASCORBIC ACID 1,000 MG TAB PO SCH (11:07)
[2021-02-10] MEDS: ENOXAPARIN SOD 40 MG/0.4 ML SYRINGE SC SCH ×2 (11:07→21:55)
[2021-02-10] MEDS: PANTOPRAZOLE 40 MG TAB PO SCH (11:07)
[2021-02-10] MEDS: VALSARTAN 80 MG TAB PO SCH (11:08)
[2021-02-10 13:00] VITALS: BP 107/67
[2021-02-10 16:40] VITALS: BP 98/60
[2021-02-10 22:00] VITALS: BP 111/69
[2021-02-11 05:00] VITALS: BP 102/58
[2021-02-11 05:55] LABS: BUN/Creatinine Ratio 58.1; Calcium 9.3 mg/dL (8.5-10.1); Potassium 4.3 mmol/L (3.5-5.1)
[2021-02-11 06:01] LABS: Basophils # (auto) 0 10 ^3/uL (0-0.2); Basophils % (auto) 0.1 % (0.0-2.0); Eosinophils # (auto) 0 10 ^3/uL (0-0.8); Hematocrit 46.8 % (36.0-46.0); Hemoglobin 15.4 g/dL (12.2-16.2); Lymphocytes # (auto) 1.3 10 ^3/uL (0.4-5.4); Lymphocytes % (auto) 7.2 % (10.0-50.0); Mean Corpuscular Hemoglobin 30.7 pg (28.0-32.0); Mean Corpuscular Hgb Conc. 32.8 g/dL (32.0-36.0); Mean Corpuscular Volume 93.7 fL (80.0-100.0); Monocytes # (auto) 1.2 10 ^3/uL (0-1.3); Monocytes % (auto) 6.6 % (0.0-12.0); Neutrophils # (auto) 15.8 10 ^3/uL (1.6-8.6); Neutrophils % (auto) 86.1 % (37.0-80.0); Nucleated Red Blood Cells % 0.1 %; Red Cell Distribution Width 14.6 % (11.8-14.3); White Blood Cell 18.3 10^3/uL (4.4-10.8)
[2021-02-11] MEDS: BUDESONIDE (INHALATION) 180 MCG IH IN SCH ×2 (06:43→21:36)
[2021-02-11] MEDS: ALBUTEROL SULF HFA 90MCG INH 200DOSE IN PRN (06:43)
[2021-02-11] MEDS: ACCU-CHEK COMFORT CURVE STRIP VI SCH ×4 (06:46→21:53)
[2021-02-11] MEDS: InsuLIN REG 1unit/0.01ml Soln (100units/ml) SC SCH ×4 (06:48→21:59)
[2021-02-11] MEDS: Ensure HIGH Protein Chocolate 8oz Bottle PO SCH ×3 (08:00→18:00)
[2021-02-11 09:00] VITALS: BP 92/60
[2021-02-11] MEDS: cefTRIAXone 1GM/50ML D5W 50 ML IV SCH (09:59)
[2021-02-11] MEDS: PANTOPRAZOLE 40 MG TAB PO SCH (09:59)
[2021-02-11] MEDS: DexAMETHasone SOD PHOS 10MG/1ML VIAL INJ IV SCH (09:59)
[2021-02-11] MEDS: ZINC SULFATE 220mg CAP or TAB PO SCH (09:59)
[2021-02-11] MEDS: ASCORBIC ACID 1,000 MG TAB PO SCH (09:59)
[2021-02-11] MEDS: MULTIPLE VITAMIN TAB PO SCH (09:59)
[2021-02-11] MEDS: CHOLECALCIFEROL (VITD3) 2,000 UNIT CAP/TAB PO SCH (10:00)
[2021-02-11] MEDS: ENOXAPARIN SOD 40 MG/0.4 ML SYRINGE SC SCH ×2 (10:00→22:06)
[2021-02-11] MEDS: VALSARTAN 80 MG TAB PO SCH (10:00)
[2021-02-11 13:00] VITALS: BP 127/57
[2021-02-11 16:47] VITALS: BP 81/47
[2021-02-11 22:00] VITALS: BP 85/56
[2021-02-12 05:00] VITALS: BP 91/67
[2021-02-12] MEDS: ACCU-CHEK COMFORT CURVE STRIP VI SCH ×4 (06:17→21:53)
[2021-02-12] MEDS: InsuLIN REG 1unit/0.01ml Soln (100units/ml) SC SCH ×4 (06:22→21:53)
[2021-02-12] MEDS: ALBUTEROL SULF HFA 90MCG INH 200DOSE IN PRN ×2 (06:33→22:08)
[2021-02-12] MEDS: BUDESONIDE (INHALATION) 180 MCG IH IN SCH ×2 (06:33→22:08)
[2021-02-12 06:37] LABS: Basophils # (auto) 0.1 10 ^3/uL (0-0.2); Basophils % (auto) 0.3 % (0.0-2.0); Eosinophils # (auto) 0.1 10 ^3/uL (0-0.8); Eosinophils % (auto) 0.3 % (0.0-7.0); Hemoglobin 15.3 g/dL (12.2-16.2); Lymphocytes # (auto) 1.6 10 ^3/uL (0.4-5.4); Lymphocytes % (auto) 6.6 % (10.0-50.0); Mean Corpuscular Hemoglobin 29.6 pg (28.0-32.0); Mean Corpuscular Hgb Conc. 31.3 g/dL (32.0-36.0); Mean Corpuscular Volume 94.7 fL (80.0-100.0); Monocytes # (auto) 1.3 10 ^3/uL (0-1.3); Monocytes % (auto) 5.6 % (0.0-12.0); Neutrophils # (auto) 20.8 10 ^3/uL (1.6-8.6); Neutrophils % (auto) 87.2 % (37.0-80.0); Nucleated Red Blood Cells % 0.1 %; Red Blood Cells 5.17 10^6/uL (4.0-5.20); Red Cell Distribution Width 14.9 % (11.8-14.3); White Blood Cell 23.8 10^3/uL (4.4-10.8)
[2021-02-12 06:51] LABS: Calcium 9.4 mg/dL (8.5-10.1); Potassium 4.4 mmol/L (3.5-5.1)
[2021-02-12 06:54] LABS: BUN/Creatinine Ratio 34.9
[2021-02-12] MEDS: Ensure HIGH Protein Chocolate 8oz Bottle PO SCH ×3 (08:00→17:27)
[2021-02-12 09:00] VITALS: BP 64/42
[2021-02-12] MEDS: ZINC SULFATE 220mg CAP or TAB PO SCH (09:11)
[2021-02-12] MEDS: MULTIPLE VITAMIN TAB PO SCH (09:11)
[2021-02-12] MEDS: ENOXAPARIN SOD 40 MG/0.4 ML SYRINGE SC SCH ×2 (09:11→21:53)
[2021-02-12] MEDS: CHOLECALCIFEROL (VITD3) 2,000 UNIT CAP/TAB PO SCH (09:12)
[2021-02-12] MEDS: ASCORBIC ACID 1,000 MG TAB PO SCH (09:12)
[2021-02-12] MEDS: VALSARTAN 80 MG TAB PO SCH (09:12)
[2021-02-12] MEDS ORDERED: SOD CHL 0.45% 1,000 ML IV SCH (09:45)
[2021-02-12 13:00] VITALS: BP 85/45
[2021-02-12 13:05] LABS: Creatinine, Urine 190 mg/dL (30.0-125.0); Protein, Urine 81.3 mg/dL (0.0-11.9); Sodium Urine 15 mmol/L (40-220)
[2021-02-12] MEDS: DOPamine 1600MCG/ML D5W 250 ML IV SCH (13:22)
[2021-02-12] MEDS: SODIUM CHLORIDE 0.9% 1,000 ML IV SCH ×2 (15:15→16:08)
[2021-02-12 16:40] VITALS: BP 81/42
[2021-02-12 22:00] VITALS: BP 116/68
[2021-02-13] VITALS (8 sets, daily range): BP systolic 88–114; BP diastolic 42–59
[2021-02-13] MEDS ORDERED: SODIUM CHLORIDE 0.9% 500 ML IV ONE (00:45)
[2021-02-13] MEDS: SODIUM CHLORIDE 0.9% 1,000 ML IV SCH (03:28)
[2021-02-13] MEDS: InsuLIN REG 1unit/0.01ml Soln (100units/ml) SC SCH ×4 (06:51→21:18)
[2021-02-13] MEDS: ACCU-CHEK COMFORT CURVE STRIP VI SCH ×4 (06:52→21:18)
[2021-02-13] MEDS: Ensure HIGH Protein Chocolate 8oz Bottle PO SCH ×3 (09:44→17:35)
[2021-02-13] MEDS: ZINC SULFATE 220mg CAP or TAB PO SCH (09:45)
[2021-02-13] MEDS: MULTIPLE VITAMIN TAB PO SCH (09:45)
[2021-02-13] MEDS: ASCORBIC ACID 1,000 MG TAB PO SCH (09:46)
[2021-02-13] MEDS: ENOXAPARIN SOD 40 MG/0.4 ML SYRINGE SC SCH ×2 (09:46→22:07)
[2021-02-13] MEDS: CHOLECALCIFEROL (VITD3) 2,000 UNIT CAP/TAB PO SCH (09:46)
[2021-02-13] MEDS: DOPamine 1600MCG/ML D5W 250 ML IV SCH (09:48)
[2021-02-13] MEDS: ALBUTEROL SULF HFA 90MCG INH 200DOSE IN PRN ×2 (10:23→21:00)
[2021-02-13] MEDS: BUDESONIDE (INHALATION) 180 MCG IH IN SCH ×2 (10:23→21:00)
[2021-02-14] MEDS: SODIUM CHLORIDE 0.9% 1,000 ML IV SCH ×2 (02:30→07:15)
[2021-02-14 05:00] VITALS: BP 128/68
[2021-02-14] MEDS: InsuLIN REG 1unit/0.01ml Soln (100units/ml) SC SCH ×4 (06:25→22:15)
[2021-02-14] MEDS: BUDESONIDE (INHALATION) 180 MCG IH IN SCH ×2 (06:26→20:15)
[2021-02-14] MEDS: ACCU-CHEK COMFORT CURVE STRIP VI SCH ×4 (06:26→22:22)
[2021-02-14] MEDS: Ensure HIGH Protein Chocolate 8oz Bottle PO SCH ×3 (08:49→19:13)
[2021-02-14] MEDS: ZINC SULFATE 220mg CAP or TAB PO SCH (08:50)
[2021-02-14] MEDS: MULTIPLE VITAMIN TAB PO SCH (08:50)
[2021-02-14] MEDS: CHOLECALCIFEROL (VITD3) 2,000 UNIT CAP/TAB PO SCH (08:50)
[2021-02-14] MEDS: ASCORBIC ACID 1,000 MG TAB PO SCH (08:50)
[2021-02-14] MEDS: ENOXAPARIN SOD 40 MG/0.4 ML SYRINGE SC SCH ×2 (08:51→22:22)
[2021-02-14 09:00] VITALS: BP 103/66
[2021-02-14] MEDS: DOPamine 1600MCG/ML D5W 250 ML IV SCH (10:26)
[2021-02-14 11:29] LABS: Calcium 7.6 mg/dL (8.5-10.1); Potassium 4.6 mmol/L (3.5-5.1)
[2021-02-14 12:52] LABS: Basophils # (auto) 0.1 10 ^3/uL (0-0.2); Basophils % (auto) 0.4 % (0.0-2.0); Eosinophils # (auto) 0.2 10 ^3/uL (0-0.8); Eosinophils % (auto) 1.1 % (0.0-7.0); Hematocrit 47.8 % (36.0-46.0); Hemoglobin 14.3 g/dL (12.2-16.2); Lymphocytes # (auto) 0.9 10 ^3/uL (0.4-5.4); Lymphocytes % (auto) 6.3 % (10.0-50.0); Mean Corpuscular Hemoglobin 29.8 pg (28.0-32.0); Mean Corpuscular Hgb Conc. 29.9 g/dL (32.0-36.0); Mean Corpuscular Volume 99.6 fL (80.0-100.0); Monocytes # (auto) 0.8 10 ^3/uL (0-1.3); Neutrophils # (auto) 11.6 10 ^3/uL (1.6-8.6); Neutrophils % (auto) 86.2 % (37.0-80.0); Nucleated Red Blood Cells % 0.1 %; Red Cell Distribution Width 16.1 % (11.8-14.3); White Blood Cell 13.5 10^3/uL (4.4-10.8)
[2021-02-14 13:00] VITALS: BP 110/57
[2021-02-14] MEDS: SOD CHL 0.45% 1,000 ML IV SCH (13:25)
[2021-02-14 17:00] VITALS: BP 112/61
[2021-02-14] MEDS: ALBUTEROL SULF HFA 90MCG INH 200DOSE IN PRN (20:14)
[2021-02-14 22:00] VITALS: BP 117/60
[2021-02-15] VITALS (54 sets, daily range): BP systolic 76–170; BP diastolic 32–93
[2021-02-15] MEDS: SOD CHL 0.45% 1,000 ML IV SCH ×2 (01:22→16:34)
[2021-02-15 05:42] LABS: Basophils # (auto) 0 10 ^3/uL (0-0.2); Basophils % (auto) 0.3 % (0.0-2.0); Eosinophils # (auto) 0.3 10 ^3/uL (0-0.8); Hematocrit 40.7 % (36.0-46.0); Hemoglobin 12.7 g/dL (12.2-16.2); Lymphocytes # (auto) 1.5 10 ^3/uL (0.4-5.4); Mean Corpuscular Hemoglobin 30.6 pg (28.0-32.0); Mean Corpuscular Hgb Conc. 31.1 g/dL (32.0-36.0); Mean Corpuscular Volume 98.4 fL (80.0-100.0); Monocytes # (auto) 1.1 10 ^3/uL (0-1.3); Monocytes % (auto) 7.5 % (0.0-12.0); Neutrophils # (auto) 11.9 10 ^3/uL (1.6-8.6); Neutrophils % (auto) 80.2 % (37.0-80.0); Nucleated Red Blood Cells % 0.2 %; Red Blood Cells 4.14 10^6/uL (4.0-5.20); Red Cell Distribution Width 15.6 % (11.8-14.3); White Blood Cell 14.9 10^3/uL (4.4-10.8)
[2021-02-15 05:56] LABS: Potassium 4.2 mmol/L (3.5-5.1)
[2021-02-15 06:01] LABS: BUN/Creatinine Ratio 49.5; Calcium 7.6 mg/dL (8.5-10.1)
[2021-02-15] MEDS: InsuLIN REG 1unit/0.01ml Soln (100units/ml) SC SCH ×4 (06:29→22:28)
[2021-02-15] MEDS: ACCU-CHEK COMFORT CURVE STRIP VI SCH ×4 (06:30→22:27)
[2021-02-15] MEDS: BUDESONIDE (INHALATION) 180 MCG IH IN SCH ×2 (06:35→06:51)
[2021-02-15] MEDS: Ensure HIGH Protein Chocolate 8oz Bottle PO SCH (08:00)
[2021-02-15] MEDS ORDERED: ROCURONIUM 10MG/ML 10ML VIAL IV ONE (09:15)
[2021-02-15] MEDS ORDERED: ETOMIDATE (2MG/ML) 20ML VIAL IV ONE (09:15)
[2021-02-15] MEDS: fentaNYL Drip 2500mCg/250mlNS 250 ML IV SCH (10:17)
[2021-02-15] MEDS: PROPOFOL 100 ML IV SCH ×2 (10:17→22:29)
[2021-02-15] MEDS: NOREPINEPHRINE 8 MG/250ML KIT 250 ML IV SCH ×2 (10:20→21:18)
[2021-02-15] MEDS: DOPamine 1600MCG/ML D5W 250 ML IV SCH (11:03)
[2021-02-15] MEDS: MIDAZOLAM DRIP 50 mg/50mL 50 ML IV SCH (11:03)
[2021-02-15] MEDS: MULTIPLE VITAMIN TAB PO SCH (11:04)
[2021-02-15] MEDS: ASCORBIC ACID 1,000 MG TAB PO SCH (11:04)
[2021-02-15] MEDS: ZINC SULFATE 220mg CAP or TAB PO SCH (11:04)
[2021-02-15] MEDS: CHOLECALCIFEROL (VITD3) 2,000 UNIT CAP/TAB PO SCH (11:04)
[2021-02-15] MEDS: ENOXAPARIN SOD 40 MG/0.4 ML SYRINGE SC SCH ×2 (15:11→21:37)
[2021-02-15 19:22] LABS: INR 1.21 (0.9-1.15); Partial Thromboplastin Time 31.4 sec (23.6-33.0)
[2021-02-16] VITALS (89 sets, daily range): BP systolic 72–151; BP diastolic 22–62
[2021-02-16] MEDS: fentaNYL Drip 2500mCg/250mlNS 250 ML IV SCH (02:00)
[2021-02-16] MEDS: SOD CHL 0.45% 1,000 ML IV SCH (05:39)
[2021-02-16] MEDS: ACCU-CHEK COMFORT CURVE STRIP VI SCH ×4 (06:14→21:14)
[2021-02-16] MEDS: InsuLIN REG 1unit/0.01ml Soln (100units/ml) SC SCH ×4 (06:17→21:14)
[2021-02-16] MEDS: MIDAZOLAM DRIP 50 mg/50mL 50 ML IV SCH ×3 (06:23→20:15)
[2021-02-16] MEDS: PROPOFOL 100 ML IV SCH ×3 (06:23→21:41)
[2021-02-16] MEDS: NOREPINEPHRINE 8 MG/250ML KIT 250 ML IV SCH ×3 (08:22→22:25)
[2021-02-16] MEDS: MULTIPLE VITAMIN TAB PO SCH (09:08)
[2021-02-16] MEDS: ENOXAPARIN SOD 40 MG/0.4 ML SYRINGE SC SCH ×3 (09:09→21:14)
[2021-02-16] MEDS: ASCORBIC ACID 1,000 MG TAB PO SCH (09:09)
[2021-02-16] MEDS: CHOLECALCIFEROL (VITD3) 2,000 UNIT CAP/TAB PO SCH (09:09)
[2021-02-16] MEDS: ZINC SULFATE 220mg CAP or TAB PO SCH (09:09)
[2021-02-16] MEDS: VASOPRESSIN 50 UNITS in D5W 5% 247.5 ML IV SCH (09:15)
[2021-02-16 11:44] LABS: Hematocrit 37.6 % (36.0-46.0); Mean Corpuscular Hemoglobin 30.2 pg (28.0-32.0); Mean Corpuscular Hgb Conc. 31.8 g/dL (32.0-36.0); Mean Corpuscular Volume 94.9 fL (80.0-100.0); Red Blood Cells 3.96 10^6/uL (4.0-5.20); Red Cell Distribution Width 16.7 % (11.8-14.3); White Blood Cell 19.2 10^3/uL (4.4-10.8)
[2021-02-16] MEDS ORDERED: PIPERACILLIN-TAZOB 3.375GM 100 ML IV ONE (11:45)
[2021-02-16 12:02] LABS: Basophils % (manual) 0 (0.0-2.0); Blast Cells 0; Promyelocytes % 0; Reactive Lymphocytes 0
[2021-02-16 13:00] LABS: Band Neutrophils % (manual) 30; Eosinophils % (manual) 8 (0-7); Lymphocytes % (manual) 10 (10.0-50.0); Metamyelocytes % 3; Monocytes % (manual) 1 (0-12); Myelocytes % 1
[2021-02-16 14:03] LABS: Potassium 3.7 mmol/L (3.5-5.1)
[2021-02-16 14:07] LABS: BUN/Creatinine Ratio 32.6
[2021-02-16] MEDS: SODIUM CHLOR 0.9% PF (SALINE LOCK) 10ML VIAL/SYR IV SCH (21:13)
[2021-02-16] MEDS: PIPERACILLIN-TAZOB 3.375GM 100 ML IV SCH (21:13)
[2021-02-17] VITALS (99 sets, daily range): BP systolic 77–163; BP diastolic 29–59
[2021-02-17] MEDS: MIDAZOLAM DRIP 50 mg/50mL 50 ML IV SCH ×4 (00:56→21:26)
[2021-02-17] MEDS: PROPOFOL 100 ML IV SCH ×2 (00:56→13:28)
[2021-02-17] MEDS: SOD CHL 0.45% 1,000 ML IV SCH (03:22)
[2021-02-17] MEDS: NOREPINEPHRINE 8 MG/250ML KIT 250 ML IV SCH ×5 (03:23→23:29)
[2021-02-17] MEDS: PIPERACILLIN-TAZOB 3.375GM 100 ML IV SCH ×3 (05:02→21:25)
[2021-02-17 06:10] LABS: Hemoglobin 8.7 g/dL (12.2-16.2); Mean Corpuscular Hgb Conc. 32.9 g/dL (32.0-36.0)
[2021-02-17] MEDS: InsuLIN REG 1unit/0.01ml Soln (100units/ml) SC SCH ×4 (06:22→22:01)
[2021-02-17] MEDS: ACCU-CHEK COMFORT CURVE STRIP VI SCH ×4 (06:23→22:01)
[2021-02-17 06:24] LABS: Hematocrit 26.5 % (36.0-46.0); Mean Corpuscular Hemoglobin 31.2 pg (28.0-32.0); Red Blood Cells 2.79 10^6/uL (4.0-5.20); Red Cell Distribution Width 15.5 % (11.8-14.3); White Blood Cell 15.6 10^3/uL (4.4-10.8)
[2021-02-17] MEDS: fentaNYL Drip 2500mCg/250mlNS 250 ML IV SCH ×2 (06:24→16:23)
[2021-02-17 06:31] LABS: Basophils % (manual) 0 (0.0-2.0); Blast Cells 0; Myelocytes % 0; Promyelocytes % 0; Reactive Lymphocytes 0
[2021-02-17 06:44] LABS: BUN/Creatinine Ratio 27.1
[2021-02-17 08:16] LABS: Band Neutrophils % (manual) 32; Eosinophils % (manual) 3 (0-7); Lymphocytes % (manual) 13 (10.0-50.0); Metamyelocytes % 1; Monocytes % (manual) 4 (0-12)
[2021-02-17 08:18] LABS: Calcium 5.1 mg/dL (8.5-10.1)
[2021-02-17] MEDS: VASOPRESSIN 50 UNITS in D5W 5% 247.5 ML IV SCH ×2 (09:15→13:30)
[2021-02-17] MEDS ORDERED: CALCIUM GLUC 1,000mg/50ml-NS 50 ML IV ONE (09:15)
[2021-02-17] MEDS: ZINC SULFATE 220mg CAP or TAB PO SCH (09:44)
[2021-02-17] MEDS: ASCORBIC ACID 1,000 MG TAB PO SCH (09:44)
[2021-02-17] MEDS: ENOXAPARIN SOD 40 MG/0.4 ML SYRINGE SC SCH ×2 (09:44→21:26)
[2021-02-17] MEDS: CHOLECALCIFEROL (VITD3) 2,000 UNIT CAP/TAB PO SCH (09:44)
[2021-02-17] MEDS: MULTIPLE VITAMIN TAB PO SCH (09:44)
[2021-02-17] MEDS: SODIUM CHLOR 0.9% PF (SALINE LOCK) 10ML VIAL/SYR IV SCH ×2 (10:00→21:25)
[2021-02-17] MEDS: POTASSIUM CHL 20MEQ/100ML 100 ML IV SCH ×2 (10:04→11:40)
[2021-02-17] MEDS: SODIUM BICARBONATE 50ML VIAL 50 ML in SOD CHL 0.45% 1,000 ML IV SCH ×2 (11:41→23:59)
[2021-02-17] MEDS: PANTOPRAZOLE 40 MG/10 ML VIAL INJ IV SCH (21:25)
[2021-02-17] MEDS: INSULIN LANTUS (GLARGINE) 1 /0.01ml (100units/ml) SC SCH (22:01)
[2021-02-18] VITALS (102 sets, daily range): BP systolic 78–157; BP diastolic 18–71
[2021-02-18] MEDS: MIDAZOLAM DRIP 50 mg/50mL 50 ML IV SCH ×5 (00:31→22:41)
[2021-02-18] MEDS: PROPOFOL 100 ML IV SCH ×2 (01:30→23:22)
[2021-02-18] MEDS: NOREPINEPHRINE 8 MG/250ML KIT 250 ML IV SCH ×3 (03:53→19:46)
[2021-02-18] MEDS: PIPERACILLIN-TAZOB 3.375GM 100 ML IV SCH ×3 (05:07→22:29)
[2021-02-18 05:58] LABS: Basophils # (auto) 0 10 ^3/uL (0-0.2); Basophils % (auto) 0.2 % (0.0-2.0); Eosinophils # (auto) 0.3 10 ^3/uL (0-0.8); Eosinophils % (auto) 2.2 % (0.0-7.0); Hematocrit 25.2 % (36.0-46.0); Hemoglobin 7.7 g/dL (12.2-16.2); Lymphocytes # (auto) 0.7 10 ^3/uL (0.4-5.4); Lymphocytes % (auto) 6.4 % (10.0-50.0); Mean Corpuscular Hemoglobin 31.4 pg (28.0-32.0); Mean Corpuscular Hgb Conc. 30.6 g/dL (32.0-36.0); Mean Corpuscular Volume 102.6 fL (80.0-100.0); Monocytes # (auto) 0.6 10 ^3/uL (0-1.3); Monocytes % (auto) 5.6 % (0.0-12.0); Neutrophils % (auto) 85.6 % (37.0-80.0); Nucleated Red Blood Cells % 0.2 %; Red Blood Cells 2.45 10^6/uL (4.0-5.20); Red Cell Distribution Width 16.5 % (11.8-14.3); White Blood Cell 11.7 10^3/uL (4.4-10.8)
[2021-02-18] MEDS: InsuLIN REG 1unit/0.01ml Soln (100units/ml) SC SCH ×4 (06:38→22:30)
[2021-02-18] MEDS: fentaNYL Drip 2500mCg/250mlNS 250 ML IV SCH ×2 (06:39→17:17)
[2021-02-18] MEDS: INSULIN LANTUS (GLARGINE) 1 /0.01ml (100units/ml) SC SCH ×2 (06:39→22:30)
[2021-02-18] MEDS: ACCU-CHEK COMFORT CURVE STRIP VI SCH ×4 (06:39→22:33)
[2021-02-18] MEDS: VASOPRESSIN 50 UNITS in D5W 5% 247.5 ML IV SCH ×2 (06:40→19:46)
[2021-02-18 08:20] LABS: Anion Gap 7 (5-15); BUN/Creatinine Ratio 20.4; Blood Urea Nitrogen 40 mg/dL (7-18); Carbon Dioxide 17 mmol/L (21-32); Chloride 114 mmol/L (98-107); GFR African American 32 mL/min; GFR Non-African American 26 mL/min; Glucose 212 mg/dL (74-106); Sodium 138 mmol/L (136-145)
[2021-02-18 08:52] LABS: Calcium 5.7 mg/dL (8.5-10.1); Potassium 5.7 mmol/L (3.5-5.1)
[2021-02-18] MEDS: ZINC SULFATE 220mg CAP or TAB PO SCH (10:00)
[2021-02-18] MEDS: ASCORBIC ACID 1,000 MG TAB PO SCH (10:00)
[2021-02-18] MEDS: CHOLECALCIFEROL (VITD3) 2,000 UNIT CAP/TAB PO SCH (10:00)
[2021-02-18] MEDS: ENOXAPARIN SOD 40 MG/0.4 ML SYRINGE SC SCH ×2 (10:00→22:00)
[2021-02-18] MEDS: MULTIPLE VITAMIN TAB PO SCH (10:00)
[2021-02-18] MEDS: SODIUM CHLOR 0.9% PF (SALINE LOCK) 10ML VIAL/SYR IV SCH ×2 (10:00→22:29)
[2021-02-18] MEDS: PANTOPRAZOLE 40 MG/10 ML VIAL INJ IV SCH ×2 (10:17→22:28)
[2021-02-18] MEDS ORDERED: FUROSEMIDE 100 MG/10ML VIAL IV ONE (10:45)
[2021-02-18] MEDS ORDERED: DEXTROSE (50%) 50ML SYRG IV ONE (10:45)
[2021-02-18] MEDS ORDERED: InsuLIN REG 1unit/0.01ml Soln (100units/ml) IV ONE (10:45)
[2021-02-18] MEDS ORDERED: SODIUM BICARBONATE 8.4 % INJ 50ML VIAL IV ONE (10:45)
[2021-02-18] MEDS ORDERED: CALCIUM GLUC 1,000mg/50ml-NS 50 ML IV ONE (10:45)
[2021-02-18] MEDS: SODIUM BICARBONATE 50ML VIAL 50 ML in SOD CHL 0.45% 1,000 ML IV SCH (14:00)
[2021-02-18] MEDS: PHENYLEPHRINE IV 250 ML IV SCH ×2 (15:00→23:20)
[2021-02-18] MEDS: EPINEPHrine HCL 250 ML IV SCH (15:00)
[2021-02-18] MEDS: ACETAMINOPHEN 500 MG TAB PO PRN (19:59)
[2021-02-19] VITALS (101 sets, daily range): BP systolic 79–151; BP diastolic 31–71
[2021-02-19] MEDS: NOREPINEPHRINE 8 MG/250ML KIT 250 ML IV SCH ×4 (00:30→18:11)
[2021-02-19] MEDS ORDERED: SODIUM BICARBONATE 8.4 % INJ 50ML VIAL IV ONE (01:50)
[2021-02-19] MEDS: MIDAZOLAM DRIP 50 mg/50mL 50 ML IV SCH ×4 (03:19→16:39)
[2021-02-19] MEDS: SODIUM BICARBONATE 50ML VIAL 50 ML in SOD CHL 0.45% 1,000 ML IV SCH (03:20)
[2021-02-19] MEDS: fentaNYL Drip 2500mCg/250mlNS 250 ML IV SCH ×2 (04:25→16:43)
[2021-02-19 05:11] LABS: Basophils # (auto) 0 10 ^3/uL (0-0.2); Basophils % (auto) 0.3 % (0.0-2.0); Eosinophils # (auto) 0.4 10 ^3/uL (0-0.8); Lymphocytes # (auto) 0.9 10 ^3/uL (0.4-5.4); Red Cell Distribution Width 16.3 % (11.8-14.3)
[2021-02-19 05:12] LABS: Hematocrit 25.2 % (36.0-46.0); Hemoglobin 8.2 g/dL (12.2-16.2); Lymphocytes % (auto) 9.6 % (10.0-50.0); Mean Corpuscular Hemoglobin 31.7 pg (28.0-32.0); Mean Corpuscular Hgb Conc. 32.6 g/dL (32.0-36.0); Mean Corpuscular Volume 97.3 fL (80.0-100.0); Monocytes # (auto) 0.6 10 ^3/uL (0-1.3); Monocytes % (auto) 6.6 % (0.0-12.0); Neutrophils # (auto) 7.7 10 ^3/uL (1.6-8.6); Neutrophils % (auto) 79.5 % (37.0-80.0); Nucleated Red Blood Cells % 0.3 %; Red Blood Cells 2.59 10^6/uL (4.0-5.20); White Blood Cell 9.7 10^3/uL (4.4-10.8)
[2021-02-19] MEDS: PIPERACILLIN-TAZOB 3.375GM 100 ML IV SCH ×3 (05:38→21:55)
[2021-02-19] MEDS: InsuLIN REG 1unit/0.01ml Soln (100units/ml) SC SCH ×4 (06:39→22:35)
[2021-02-19] MEDS: INSULIN LANTUS (GLARGINE) 1 /0.01ml (100units/ml) SC SCH ×2 (06:39→22:48)
[2021-02-19] MEDS: ACCU-CHEK COMFORT CURVE STRIP VI SCH ×4 (06:40→22:36)
[2021-02-19] MEDS: VASOPRESSIN 50 UNITS in D5W 5% 247.5 ML IV SCH (07:31)
[2021-02-19] MEDS: PROPOFOL 100 ML IV SCH ×2 (07:32→16:37)
[2021-02-19] MEDS: PHENYLEPHRINE IV 250 ML IV SCH ×2 (07:40→16:00)
[2021-02-19] MEDS ORDERED: EPINEPHrine HCL 1 MG/10 ML SYRG ONE (09:10)
[2021-02-19] MEDS: ENOXAPARIN SOD 40 MG/0.4 ML SYRINGE SC SCH ×2 (10:00→21:55)
[2021-02-19] MEDS: CHOLECALCIFEROL (VITD3) 2,000 UNIT CAP/TAB PO SCH (10:00)
[2021-02-19] MEDS: MULTIPLE VITAMIN TAB PO SCH (10:00)
[2021-02-19] MEDS: ASCORBIC ACID 1,000 MG TAB PO SCH (10:00)
[2021-02-19] MEDS: ZINC SULFATE 220mg CAP or TAB PO SCH (10:00)
[2021-02-19] MEDS: SODIUM CHLOR 0.9% PF (SALINE LOCK) 10ML VIAL/SYR IV SCH ×2 (11:24→21:55)
[2021-02-19] MEDS: PANTOPRAZOLE 40 MG/10 ML VIAL INJ IV SCH ×2 (11:24→22:33)
[2021-02-19 12:14] LABS: Potassium 3.6 mmol/L (3.5-5.1)
[2021-02-19 12:19] LABS: BUN/Creatinine Ratio 14.3; Calcium 6.5 mg/dL (8.5-10.1)
[2021-02-19] MEDS: EPINEPHrine HCL 250 ML IV SCH (15:00)
[2021-02-19] MEDS: SODIUM BICARBONATE 50ML VIAL 75 ML in SOD CHL 0.45% 1,000 ML IV SCH (16:36)
[2021-02-19] MEDS ORDERED: CALCIUM GLUC 1,000mg/50ml-NS 50 ML IV ONE ×2 (17:30→18:45)
[2021-02-20] VITALS (94 sets, daily range): BP systolic 80–145; BP diastolic 31–72
[2021-02-20] MEDS: PHENYLEPHRINE IV 250 ML IV SCH ×3 (00:20→14:49)
[2021-02-20] MEDS: PIPERACILLIN-TAZOB 3.375GM 100 ML IV SCH ×3 (05:31→21:10)
[2021-02-20] MEDS: InsuLIN REG 1unit/0.01ml Soln (100units/ml) SC SCH ×4 (06:02→21:10)
[2021-02-20] MEDS: INSULIN LANTUS (GLARGINE) 1 /0.01ml (100units/ml) SC SCH ×2 (06:02→21:14)
[2021-02-20] MEDS: ACCU-CHEK COMFORT CURVE STRIP VI SCH ×4 (06:03→21:11)
[2021-02-20] MEDS: SODIUM BICARBONATE 50ML VIAL 75 ML in SOD CHL 0.45% 1,000 ML IV SCH ×2 (07:33→18:10)
[2021-02-20] MEDS: MULTIPLE VITAMIN TAB PO SCH (08:25)
[2021-02-20] MEDS: ZINC SULFATE 220mg CAP or TAB PO SCH (08:25)
[2021-02-20] MEDS: ASCORBIC ACID 1,000 MG TAB PO SCH (08:25)
[2021-02-20] MEDS: CHOLECALCIFEROL (VITD3) 2,000 UNIT CAP/TAB PO SCH (08:25)
[2021-02-20] MEDS: ENOXAPARIN SOD 40 MG/0.4 ML SYRINGE SC SCH ×2 (08:26→20:33)
[2021-02-20] MEDS: VASOPRESSIN 50 UNITS in D5W 5% 247.5 ML IV SCH (09:26)
[2021-02-20] MEDS: PANTOPRAZOLE 40 MG/10 ML VIAL INJ IV SCH ×2 (10:30→21:10)
[2021-02-20 10:43] LABS: Hemoglobin 9.2 g/dL (12.2-16.2); Mean Corpuscular Hemoglobin 30.6 pg (28.0-32.0); Mean Corpuscular Volume 92.7 fL (80.0-100.0); Red Blood Cells 3.02 10^6/uL (4.0-5.20); White Blood Cell 8.3 10^3/uL (4.4-10.8)
[2021-02-20 11:03] LABS: Basophils % (manual) 0 (0.0-2.0); Blast Cells 0; Metamyelocytes % 0; Myelocytes % 0; Promyelocytes % 0; Reactive Lymphocytes 0
[2021-02-20] MEDS: SODIUM CHLOR 0.9% PF (SALINE LOCK) 10ML VIAL/SYR IV SCH ×2 (11:18→20:34)
[2021-02-20 11:36] LABS: Band Neutrophils % (manual) 16; Eosinophils % (manual) 2 (0-7); Lymphocytes % (manual) 22 (10.0-50.0); Monocytes % (manual) 10 (0-12)
[2021-02-20] MEDS: NOREPINEPHRINE 8 MG/250ML KIT 250 ML IV SCH ×2 (12:20→21:15)
[2021-02-20] MEDS: EPINEPHrine HCL 250 ML IV SCH (12:20)
[2021-02-20] MEDS: MIDAZOLAM DRIP 50 mg/50mL 50 ML IV SCH (21:14)
[2021-02-21] VITALS (97 sets, daily range): BP systolic 90–159; BP diastolic 30–68
[2021-02-21] MEDS: PHENYLEPHRINE IV 250 ML IV SCH ×3 (01:20→18:00)
[2021-02-21] MEDS: ACCU-CHEK COMFORT CURVE STRIP VI SCH ×4 (06:30→22:00)
[2021-02-21] MEDS: fentaNYL Drip 2500mCg/250mlNS 250 ML IV SCH ×2 (06:30→17:13)
[2021-02-21] MEDS: INSULIN LANTUS (GLARGINE) 1 /0.01ml (100units/ml) SC SCH ×2 (06:30→20:28)
[2021-02-21] MEDS: InsuLIN REG 1unit/0.01ml Soln (100units/ml) SC SCH ×4 (06:30→22:00)
[2021-02-21] MEDS: PIPERACILLIN-TAZOB 3.375GM 100 ML IV SCH ×3 (06:31→21:55)
[2021-02-21] MEDS: PROPOFOL 100 ML IV SCH (06:32)
[2021-02-21] MEDS: PANTOPRAZOLE 40 MG/10 ML VIAL INJ IV SCH ×2 (09:30→21:55)
[2021-02-21] MEDS: VASOPRESSIN 50 UNITS in D5W 5% 247.5 ML IV SCH (09:30)
[2021-02-21] MEDS: MULTIPLE VITAMIN TAB PO SCH (09:31)
[2021-02-21] MEDS: SODIUM CHLOR 0.9% PF (SALINE LOCK) 10ML VIAL/SYR IV SCH ×2 (09:31→20:27)
[2021-02-21] MEDS: ZINC SULFATE 220mg CAP or TAB PO SCH (09:31)
[2021-02-21] MEDS: CHOLECALCIFEROL (VITD3) 2,000 UNIT CAP/TAB PO SCH (09:31)
[2021-02-21] MEDS: ASCORBIC ACID 1,000 MG TAB PO SCH (09:31)
[2021-02-21] MEDS: SODIUM BICARBONATE 50ML VIAL 75 ML in SOD CHL 0.45% 1,000 ML IV SCH ×2 (09:44→23:18)
[2021-02-21] MEDS ORDERED: ACETYLCYSTEINE 10 %(100MG/ML) SOL 4ML NEB ONE (09:45)
[2021-02-21] MEDS: ENOXAPARIN SOD 40 MG/0.4 ML SYRINGE SC SCH ×2 (09:45→20:28)
[2021-02-21 10:51] LABS: Basophils # (auto) 0.1 10 ^3/uL (0-0.2); Basophils % (auto) 0.6 % (0.0-2.0); Eosinophils # (auto) 0.5 10 ^3/uL (0-0.8); Eosinophils % (auto) 3.6 % (0.0-7.0); Hematocrit 34.6 % (36.0-46.0); Hemoglobin 11.6 g/dL (12.2-16.2); Lymphocytes # (auto) 1.1 10 ^3/uL (0.4-5.4); Lymphocytes % (auto) 7.7 % (10.0-50.0); Mean Corpuscular Hemoglobin 29.8 pg (28.0-32.0); Mean Corpuscular Hgb Conc. 33.5 g/dL (32.0-36.0); Monocytes # (auto) 0.4 10 ^3/uL (0-1.3); Monocytes % (auto) 2.5 % (0.0-12.0); Neutrophils # (auto) 12.2 10 ^3/uL (1.6-8.6); Neutrophils % (auto) 85.6 % (37.0-80.0); Nucleated Red Blood Cells % 0.3 %; Red Blood Cells 3.88 10^6/uL (4.0-5.20); Red Cell Distribution Width 15.5 % (11.8-14.3); White Blood Cell 14.3 10^3/uL (4.4-10.8)
[2021-02-21 11:01] LABS: Potassium 3.1 mmol/L (3.5-5.1)
[2021-02-21 11:04] LABS: BUN/Creatinine Ratio 12.5
[2021-02-21 11:58] LABS: Calcium 5.9 mg/dL (8.5-10.1)
[2021-02-21] MEDS: NOREPINEPHRINE 8 MG/250ML KIT 250 ML IV SCH ×2 (12:48→17:15)
[2021-02-21] MEDS ORDERED: CALCIUM GLUC 1,000mg/50ml-NS 50 ML IV ONE (13:00)
[2021-02-21] MEDS: EPINEPHrine HCL 250 ML IV SCH (15:00)
[2021-02-21] MEDS: POTASSIUM CHL 20MEQ/100ML 100 ML IV SCH ×2 (15:08→17:12)
[2021-02-21] MEDS: MIDAZOLAM DRIP 50 mg/50mL 50 ML IV SCH (17:14)
[2021-02-21] MEDS: ACETYLCYSTEINE 10 %(100MG/ML) SOL 4ML NEB SCH ×2 (18:28→22:32)
[2021-02-21] MEDS: ALBUTEROL SULF 2.5 MG/0.5ML(0.5%) NEB SOLN NEB SCH ×2 (18:28→22:28)
[2021-02-22] VITALS (100 sets, daily range): BP systolic 84–155; BP diastolic 33–62
[2021-02-22] MEDS: ACETYLCYSTEINE 10 %(100MG/ML) SOL 4ML NEB SCH ×6 (02:06→21:21)
[2021-02-22] MEDS: ALBUTEROL SULF 2.5 MG/0.5ML(0.5%) NEB SOLN NEB SCH ×6 (02:06→21:21)
[2021-02-22] MEDS: PHENYLEPHRINE IV 250 ML IV SCH ×3 (02:20→19:00)
[2021-02-22] MEDS: PIPERACILLIN-TAZOB 3.375GM 100 ML IV SCH ×3 (06:07→21:02)
[2021-02-22] MEDS: InsuLIN REG 1unit/0.01ml Soln (100units/ml) SC SCH ×4 (06:08→21:38)
[2021-02-22] MEDS: ACCU-CHEK COMFORT CURVE STRIP VI SCH ×4 (06:08→21:39)
[2021-02-22] MEDS: INSULIN LANTUS (GLARGINE) 1 /0.01ml (100units/ml) SC SCH ×2 (06:08→21:38)
[2021-02-22] MEDS: PROPOFOL 100 ML IV SCH ×2 (06:09→15:44)
[2021-02-22] MEDS: fentaNYL Drip 2500mCg/250mlNS 250 ML IV SCH ×2 (06:10→14:04)
[2021-02-22] MEDS ORDERED: FUROSEMIDE 100 MG/10ML VIAL IV ONE (10:15)
[2021-02-22] MEDS: NOREPINEPHRINE 8 MG/250ML KIT 250 ML IV SCH ×3 (10:25→21:23)
[2021-02-22] MEDS: PANTOPRAZOLE 40 MG/10 ML VIAL INJ IV SCH ×2 (10:26→21:02)
[2021-02-22] MEDS: ENOXAPARIN SOD 40 MG/0.4 ML SYRINGE SC SCH (10:26)
[2021-02-22] MEDS: MIDAZOLAM DRIP 50 mg/50mL 50 ML IV SCH (10:26)
[2021-02-22] MEDS: CHOLECALCIFEROL (VITD3) 2,000 UNIT CAP/TAB PO SCH (10:27)
[2021-02-22] MEDS: MULTIPLE VITAMIN TAB PO SCH (10:27)
[2021-02-22] MEDS: ZINC SULFATE 220mg CAP or TAB PO SCH (10:27)
[2021-02-22] MEDS: ASCORBIC ACID 1,000 MG TAB PO SCH (10:28)
[2021-02-22] MEDS: SODIUM CHLOR 0.9% PF (SALINE LOCK) 10ML VIAL/SYR IV SCH ×2 (10:28→21:02)
[2021-02-22 13:38] LABS: Basophils # (auto) 0 10 ^3/uL (0-0.2); Basophils % (auto) 0.2 % (0.0-2.0); Eosinophils # (auto) 0.2 10 ^3/uL (0-0.8); Eosinophils % (auto) 1.1 % (0.0-7.0); Hematocrit 37.1 % (36.0-46.0); Lymphocytes # (auto) 0.8 10 ^3/uL (0.4-5.4); Lymphocytes % (auto) 4.5 % (10.0-50.0); Mean Corpuscular Hgb Conc. 32.2 g/dL (32.0-36.0); Mean Corpuscular Volume 92.9 fL (80.0-100.0); Monocytes # (auto) 0.5 10 ^3/uL (0-1.3); Monocytes % (auto) 3.1 % (0.0-12.0); Neutrophils # (auto) 15.7 10 ^3/uL (1.6-8.6); Neutrophils % (auto) 91.1 % (37.0-80.0); Nucleated Red Blood Cells % 0.4 %; Red Blood Cells 3.99 10^6/uL (4.0-5.20); Red Cell Distribution Width 15.6 % (11.8-14.3); White Blood Cell 17.3 10^3/uL (4.4-10.8)
[2021-02-22] MEDS: SODIUM BICARBONATE 50ML VIAL 75 ML in SOD CHL 0.45% 1,000 ML IV SCH (13:55)
[2021-02-22] MEDS: EPINEPHrine HCL 250 ML IV SCH (15:00)
[2021-02-22 15:30] LABS: Anion Gap 15 (5-15); Carbon Dioxide 12 mmol/L (21-32); Chloride 85 mmol/L (98-107); Potassium 4.2 mmol/L (3.5-5.1)
[2021-02-22 15:31] LABS: BUN/Creatinine Ratio 11.7; Blood Urea Nitrogen 38 mg/dL (7-18); GFR African American 18 mL/min; GFR Non-African American 15 mL/min; Glucose 97 mg/dL (74-106)
[2021-02-22 15:33] LABS: Calcium 5.5 mg/dL (8.5-10.1); Sodium 112 mmol/L (136-145)
[2021-02-22] MEDS ORDERED: CALCIUM GLUC 1,000mg/50ml-NS 50 ML IV ONE ×2 (16:15→17:45)
[2021-02-22] MEDS ORDERED: SODIUM CHL 3% 300 ML IV ONE (16:45)
[2021-02-22] MEDS ORDERED: Glucerna 1.2 Cal 1Liter BOTTLE GT SCH (16:45)
[2021-02-22] MEDS: SODIUM BICARBONATE 50ML VIAL 150 ML in D5W 5% 1,000 ML IV SCH (19:00)
[2021-02-23] VITALS (101 sets, daily range): BP systolic 84–145; BP diastolic 41–64
[2021-02-23] MEDS: ACETYLCYSTEINE 10 %(100MG/ML) SOL 4ML NEB SCH ×6 (02:00→22:20)
[2021-02-23] MEDS: ALBUTEROL SULF 2.5 MG/0.5ML(0.5%) NEB SOLN NEB SCH ×6 (02:30→22:20)
[2021-02-23] MEDS: PHENYLEPHRINE IV 250 ML IV SCH ×3 (03:20→20:00)
[2021-02-23 05:47] LABS: Potassium 3.6 mmol/L (3.5-5.1)
[2021-02-23 05:51] LABS: BUN/Creatinine Ratio 11.6
[2021-02-23 06:02] LABS: Calcium 5.1 mg/dL (8.5-10.1)
[2021-02-23] MEDS: PIPERACILLIN-TAZOB 3.375GM 100 ML IV SCH ×3 (06:29→21:22)
[2021-02-23] MEDS: VASOPRESSIN 50 UNITS in D5W 5% 247.5 ML IV SCH ×2 (06:29→09:15)
[2021-02-23] MEDS: SODIUM BICARBONATE 50ML VIAL 150 ML in D5W 5% 1,000 ML IV SCH ×2 (06:29→15:45)
[2021-02-23] MEDS: ACCU-CHEK COMFORT CURVE STRIP VI SCH ×4 (06:32→22:00)
[2021-02-23] MEDS: PROPOFOL 100 ML IV SCH (06:36)
[2021-02-23] MEDS: NOREPINEPHRINE 8 MG/250ML KIT 250 ML IV SCH (06:37)
[2021-02-23] MEDS: fentaNYL Drip 2500mCg/250mlNS 250 ML IV SCH ×2 (06:38→14:04)
[2021-02-23] MEDS: MIDAZOLAM DRIP 50 mg/50mL 50 ML IV SCH ×2 (06:38→12:30)
[2021-02-23] MEDS: INSULIN LANTUS (GLARGINE) 1 /0.01ml (100units/ml) SC SCH ×2 (06:39→22:00)
[2021-02-23] MEDS: InsuLIN REG 1unit/0.01ml Soln (100units/ml) SC SCH ×4 (06:39→22:00)
[2021-02-23] MEDS ORDERED: FUROSEMIDE 100 MG/10ML VIAL IV ONE (07:00)
[2021-02-23] MEDS ORDERED: CALCIUM GLUC 1,000mg/50ml-NS 50 ML IV ONE (09:00)
[2021-02-23] MEDS ORDERED: SODIUM BICARBONATE 8.4 % INJ 50ML VIAL IV ONE (09:00)
[2021-02-23] MEDS ORDERED: SODIUM CHL 3% 300 ML IV ONE (09:00)
[2021-02-23] MEDS: SODIUM CHLOR 0.9% PF (SALINE LOCK) 10ML VIAL/SYR IV SCH ×2 (09:10→21:22)
[2021-02-23] MEDS: ZINC SULFATE 220mg CAP or TAB PO SCH (09:10)
[2021-02-23] MEDS: PANTOPRAZOLE 40 MG/10 ML VIAL INJ IV SCH ×2 (09:10→21:22)
[2021-02-23] MEDS: ASCORBIC ACID 1,000 MG TAB PO SCH (09:11)
[2021-02-23] MEDS: CHOLECALCIFEROL (VITD3) 2,000 UNIT CAP/TAB PO SCH (09:11)
[2021-02-23] MEDS: MULTIPLE VITAMIN TAB PO SCH (09:11)
[2021-02-23 12:05] LABS: Basophils # (auto) 0 10 ^3/uL (0-0.2); Basophils % (auto) 0.2 % (0.0-2.0); Eosinophils # (auto) 0.5 10 ^3/uL (0-0.8); Eosinophils % (auto) 2.6 % (0.0-7.0); Hematocrit 33.8 % (36.0-46.0); Hemoglobin 11.3 g/dL (12.2-16.2); Lymphocytes # (auto) 0.6 10 ^3/uL (0.4-5.4); Lymphocytes % (auto) 3.6 % (10.0-50.0); Mean Corpuscular Hemoglobin 30.3 pg (28.0-32.0); Mean Corpuscular Hgb Conc. 33.3 g/dL (32.0-36.0); Mean Corpuscular Volume 90.9 fL (80.0-100.0); Monocytes # (auto) 0.3 10 ^3/uL (0-1.3); Monocytes % (auto) 1.9 % (0.0-12.0); Neutrophils # (auto) 16.2 10 ^3/uL (1.6-8.6); Neutrophils % (auto) 91.7 % (37.0-80.0); Nucleated Red Blood Cells % 0.4 %; Red Blood Cells 3.72 10^6/uL (4.0-5.20); Red Cell Distribution Width 15.7 % (11.8-14.3); White Blood Cell 17.6 10^3/uL (4.4-10.8)
[2021-02-23] MEDS: MAGNESIUM SULFATE 1GM/100ML 100 ML IV SCH ×2 (13:00→15:44)
[2021-02-23] MEDS: EPINEPHrine HCL 250 ML IV SCH (15:00)
[2021-02-24] VITALS (94 sets, daily range): BP systolic 72–149; BP diastolic 32–85
[2021-02-24] MEDS: ALBUTEROL SULF 2.5 MG/0.5ML(0.5%) NEB SOLN NEB SCH ×6 (02:25→22:00)
[2021-02-24] MEDS: ACETYLCYSTEINE 10 %(100MG/ML) SOL 4ML NEB SCH ×6 (02:25→22:00)
[2021-02-24] MEDS: MIDAZOLAM DRIP 50 mg/50mL 50 ML IV SCH ×2 (03:10→17:47)
[2021-02-24] MEDS: NOREPINEPHRINE 8 MG/250ML KIT 250 ML IV SCH ×2 (03:10→17:47)
[2021-02-24] MEDS: fentaNYL Drip 2500mCg/250mlNS 250 ML IV SCH ×2 (03:11→13:58)
[2021-02-24] MEDS: PHENYLEPHRINE IV 250 ML IV SCH ×2 (04:20→12:40)
[2021-02-24 06:12] LABS: Eosinophils # (auto) 0.3 10 ^3/uL (0-0.8)
[2021-02-24 06:16] LABS: Basophils # (auto) 0.1 10 ^3/uL (0-0.2); Basophils % (auto) 0.5 % (0.0-2.0); Eosinophils % (auto) 1.8 % (0.0-7.0); Hematocrit 35.3 % (36.0-46.0); Hemoglobin 11.6 g/dL (12.2-16.2); Lymphocytes # (auto) 0.4 10 ^3/uL (0.4-5.4); Lymphocytes % (auto) 2.4 % (10.0-50.0); Mean Corpuscular Hemoglobin 30.7 pg (28.0-32.0); Mean Corpuscular Hgb Conc. 32.8 g/dL (32.0-36.0); Mean Corpuscular Volume 93.4 fL (80.0-100.0); Monocytes # (auto) 0.4 10 ^3/uL (0-1.3); Neutrophils # (auto) 16.4 10 ^3/uL (1.6-8.6); Neutrophils % (auto) 93.3 % (37.0-80.0); Nucleated Red Blood Cells % 0.6 %; Red Blood Cells 3.78 10^6/uL (4.0-5.20); Red Cell Distribution Width 16.1 % (11.8-14.3); White Blood Cell 17.6 10^3/uL (4.4-10.8)
[2021-02-24] MEDS: PIPERACILLIN-TAZOB 3.375GM 100 ML IV SCH ×2 (06:51→14:07)
[2021-02-24] MEDS: SODIUM BICARBONATE 50ML VIAL 150 ML in D5W 5% 1,000 ML IV SCH ×2 (06:51→15:43)
[2021-02-24] MEDS: ACCU-CHEK COMFORT CURVE STRIP VI SCH ×4 (06:52→22:00)
[2021-02-24] MEDS: InsuLIN REG 1unit/0.01ml Soln (100units/ml) SC SCH ×4 (06:52→22:00)
[2021-02-24] MEDS: INSULIN LANTUS (GLARGINE) 1 /0.01ml (100units/ml) SC SCH ×2 (06:52→22:00)
[2021-02-24 07:00] LABS: BUN/Creatinine Ratio 5.2; Blood Urea Nitrogen 17 mg/dL (7-18); Carbon Dioxide 15 mmol/L (21-32); GFR African American 18 mL/min; GFR Non-African American 15 mL/min; Glucose 96 mg/dL (74-106)
[2021-02-24 07:34] LABS: Anion Gap 16 (5-15); Chloride 81 mmol/L (98-107); Potassium 4.1 mmol/L (3.5-5.1)
[2021-02-24 08:08] LABS: Calcium 5.3 mg/dL (8.5-10.1)
[2021-02-24 08:09] LABS: Sodium 112 mmol/L (136-145)
[2021-02-24] MEDS: VASOPRESSIN 50 UNITS in D5W 5% 247.5 ML IV SCH (09:15)
[2021-02-24] MEDS: PROPOFOL 100 ML IV SCH (09:15)
[2021-02-24] MEDS ORDERED: SODIUM CHL 3% 500 ML IV ONE (10:00)
[2021-02-24] MEDS: SODIUM CHLOR 0.9% PF (SALINE LOCK) 10ML VIAL/SYR IV SCH ×2 (10:03→22:00)
[2021-02-24] MEDS: PANTOPRAZOLE 40 MG/10 ML VIAL INJ IV SCH ×2 (10:03→22:00)
[2021-02-24] MEDS: MULTIPLE VITAMIN TAB PO SCH (10:04)
[2021-02-24] MEDS: CHOLECALCIFEROL (VITD3) 2,000 UNIT CAP/TAB PO SCH (10:04)
[2021-02-24] MEDS: ASCORBIC ACID 1,000 MG TAB PO SCH (10:04)
[2021-02-24] MEDS: ZINC SULFATE 220mg CAP or TAB PO SCH (10:04)
[2021-02-24] MEDS: CALCIUM GLUC 1,000mg/50ml-NS 50 ML IV SCH ×4 (11:36→19:23)
[2021-02-24] MEDS: EPINEPHrine HCL 250 ML IV SCH (15:00)
[2021-02-24 17:04] LABS: Potassium 3.4 mmol/L (3.5-5.1)
[2021-02-24 17:05] LABS: BUN/Creatinine Ratio 10.9
[2021-02-24 17:06] LABS: Calcium 5.5 mg/dL (8.5-10.1)
[2021-02-24] MEDS ORDERED: CALCIUM GLUC 1,000mg/50ml-NS 50 ML IV ONE (17:45)
[2021-02-24] MEDS ORDERED: MORPHINE SULFATE INJECTION 2 MG/ML SYRG IV PRN (22:30)
[2021-02-24] MEDS ORDERED: LORazepam 2MG/ML-1ML VIAL IV PRN (22:30)
[2021-02-24] MEDS ORDERED: ONDANSETRON HCL 4 MG/2 ML VIAL IV PRN (22:30)
[2021-02-24] MEDS ORDERED: ACETAMINOPHEN 500 MG TAB PO PRN (23:00)
[2021-02-25] MEDS: ACETYLCYSTEINE 10 %(100MG/ML) SOL 4ML NEB SCH (02:00)
[2021-02-25] MEDS: ALBUTEROL SULF 2.5 MG/0.5ML(0.5%) NEB SOLN NEB SCH (02:00)
[2021-02-25] MEDS: PIPERACILLIN-TAZOB 3.375GM 100 ML IV SCH (04:26)
== END 2021-02-24 22:46 | DRG 870 ==
LOC: ER 21:00 → TELE 01-30 07:09 → TELE-EAST 01-31 23:35 → TELE-E-ADS 02-15 03:28 → ICU CENTRL 02-15 09:43 → DOU IN ICU 02-15 09:44
PROVIDERS: ADMIT Nurse Practitioner Family; ATTEND Internal Medicine Pulmonary Disease
PROC: XW033E5 Introduction of Remdesivir Anti-infective into Peripheral Vein, Percutaneous Approach, New Technology Group 5 (ICD-10-PCS; 2021-01-30)
PROC: XW033H5 Introduction of Tocilizumab into Peripheral Vein, Percutaneous Approach, New Technology Group 5 (ICD-10-PCS; 2021-01-31)
PROC: 05HD33Z Insertion of Infusion Device into Right Cephalic Vein, Percutaneous Approach (ICD-10-PCS; 2021-02-07)
PROC: B54MZZA Ultrasonography of Right Upper Extremity Veins, Guidance (ICD-10-PCS; 2021-02-07)
PROC: 5A1955Z Respiratory Ventilation, Greater than 96 Consecutive Hours (ICD-10-PCS; principal; 2021-02-15)
PROC: 0BH17EZ Insertion of Endotracheal Airway into Trachea, Via Natural or Artificial Opening (ICD-10-PCS; 2021-02-15)
PROC: 0W9930Z Drainage of Right Pleural Cavity with Drainage Device, Percutaneous Approach (ICD-10-PCS; 2021-02-15)
PROC: 30233R1 Transfusion of Nonautologous Platelets into Peripheral Vein, Percutaneous Approach (ICD-10-PCS; 2021-02-18)
PROC: 30233N1 Transfusion of Nonautologous Red Blood Cells into Peripheral Vein, Percutaneous Approach (ICD-10-PCS; 2021-02-18)
PROC: 0DJ08ZZ Inspection of Upper Intestinal Tract, Via Natural or Artificial Opening Endoscopic (ICD-10-PCS; 2021-02-19)
DX: A41.89 Other specified sepsis (principal); U07.1 COVID-19; J96.01 Acute respiratory failure with hypoxia; J12.82 Pneumonia due to coronavirus disease 2019; N17.0 Acute kidney failure with tubular necrosis; R65.21 Severe sepsis with septic shock; E87.0 Hyperosmolality and hypernatremia; J93.9 Pneumothorax, unspecified; K92.2 Gastrointestinal hemorrhage, unspecified; E87.1 Hypo-osmolality and hyponatremia; D62 Acute posthemorrhagic anemia; D68.59 Other primary thrombophilia; J90 Pleural effusion, not elsewhere classified; M06.9 Rheumatoid arthritis, unspecified; K29.70 Gastritis, unspecified, without bleeding; R57.1 Hypovolemic shock; I16.0 Hypertensive urgency; E88.09 Other disorders of plasma-protein metabolism, not elsewhere classified; E11.65 Type 2 diabetes mellitus with hyperglycemia; E86.1 Hypovolemia; D69.6 Thrombocytopenia, unspecified; E87.5 Hyperkalemia; E83.51 Hypocalcemia; Z68.28 Body mass index [BMI] 28.0-28.9, adult
CPT/HCPCS: 36415; 36569; 36600; 43235; 71045; 71260; 74176; 76604; 76775; 80048; 80053; 81001; 82570; 82728; 82805; 82962; 83036; 83605; 83615; 83690; 83735; 83930; 83935; 84100; 84156; 84295; 84300; 84443; 84484; 85007; 85025; 85027; 85379; 85610; 85730; 86141; 86850; 86900; 86901; 86920; 87040; 87070; 87077; 87081; 87086; 87205; 87426; 93005; 93306; 93970; 94002; 94003; 94640; 96365; 96375; C9113; G0378; J0696; J1100; J1815; J2250; J2543; J2704; J3480; J3490; J7060